=== PATIENT | female | born 1955 | race Caucasian/White ===

== ENCOUNTER 2019-12-14 11:02 | Outpatient (CLI) | payer OTHER, SELFPAY ==
--- NOTE | ~2019-12-14 | CT_ITS ---
EXAMINATION: CT lung screening EXAM DATE: 12/14/2019 11:34 INDICATION: Personal history of nicotine dependence. TECHNIQUE: Spiral low dose CT of the chest without contrast. Axial, coronal and sagittal images were reviewed. The dose-length product (DLP) for this examination was 105.68 mGy-cm. The exposure was t ailored according to patient size (auto mA exposure control), and iterative reconstruction (ASIR) was used as additional dose reduction technique. There is no prior study for comparison. FINDINGS: There is 4 mm nodule left perihilar region image 43. Mild emphysema. Tracheobronchial tree is patent. There is no mediastinal, hilar or axillary lymphadenopathy. There are no pleural or p ericardial effusions. There is no pneumothorax. Heart normal in size. There are sternotomy wire s, and cardiac/coronary surgical changes. Correlate with prior history. Upper abdomen is unremarkable . There is mild thoracic spondylosis without osteoblastic or osteolytic lesions identified. IMPRESSION: Lung-RADS category 2, benign appearance or behavior (<1% chance of malignancy); recommend continued LDCT screening in 1 year. Reviewed, dictated and finalized at location B. 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
== END 2019-12-14 11:03 | disposition home or self-care (01) ==
DX: Z12.2 Encounter for screening for malignant neoplasm of respiratory organs (principal); F17.211 Nicotine dependence, cigarettes, in remission
CPT/HCPCS: G0297

== ENCOUNTER 2020-03-14 09:29 | Outpatient (CLI) | payer OTHER, SELFPAY ==
--- NOTE | 2020-03-18 13:29 | WPDPFTINT ---
PFT Interpretation PFT Interpretation: DOS: 03/14/2020 REQUESTING: Dr Jorge Fischer REASON FOR TESTING: Severe persistent asthma with exacerbation PULMONARY FUNCTION TESTS Results are reproducible and reliable. Spirometry: FEV1 99%, FVC 98%, FEV1% 73%, YBT73-68% is 69%. No change with bronchodilator. Lung volumes: TLC 115%. RV 133% consistent with mild air trapping. Airway resistance is 176% mildly increased. Diffusion: DLCO is 56%, moderately decreased. Flow volume loop: Flow limitation and flattening of both limbs, the inspiratory limb more than the expiratory limb. IMPRESSION: Normal spirometry without change after bronchodilator. Mild air trapping. Mild increase in airway resistance. Lack of response to bronchdilator should not preclude use if clinically indicated. These findings are consistent with asthma. Moderate decrease in diffusion which is not a feature of asthma, may be related to tobacco smoking. Flattening of the both inspiratory and expiratory flow volume loops suggests a fixed upper airway obstruction which may be intra- or extrathoracic. Consider neck CT or laryngoscopy. Erica Baron MD
== END 2020-03-14 09:30 | disposition home or self-care (01) ==
LOC: ANHPFT 09:32
DX: J45.51 Severe persistent asthma with (acute) exacerbation (principal)
CPT/HCPCS: 94060; 94726; 94729

== ENCOUNTER 2020-04-03 08:10 | Outpatient (CLI) | payer OTHER, SELFPAY ==
--- NOTE | ~2020-04-03 | US_ITS ---
US abdomen complete DATE: 04/03/2020 08:51 INDICATION: Abdominal pain TECHNIQUE: Real-time imaging and Doppler analysis of the abdomen COMPARISON: 06/25/2016 CT abdomen pelvis FINDINGS: No hepatic space-occupying mass lesion is evident. There is normal hepatic portal venous fl ow direction. No gallstones or gallbladder wall thickening or abnormal pericholecystic fluid collecti on. The spleen measures within upper limits of normal at 12 cm approximate length. No renal mass lesion or hydronephrosis is evident. The pancreas, abdominal aorta and inferior vena cava are not well demonstrated due to interference fr om overlying bowel gas. IMPRESSION: Limited examination due to interference from bowel gas Reviewed, dictated and finalized at Location A. Reviewed, dictated and finalized at location A.
== END 2020-04-03 08:11 | disposition home or self-care (01) ==
DX: R10.84 Generalized abdominal pain (principal)
CPT/HCPCS: 76700

== ENCOUNTER 2020-09-08 13:44 | Outpatient (CLI) | payer OTHER, SELFPAY ==
--- NOTE | ~2020-09-08 | MM_ITS ---
EXAMINATION: MM screening [facility] BI w dimas HISTORY: Screening mammogram TECHNIQUE: Craniocaudal and mediolateral oblique 3-D tomosynthesis images were obtained and synthetic 2-D images were generated. CAD analysis was submitted and interpreted. COMPARISON: 07/18/2018, 07/06/2017, 07/02/2016 BREAST PARENCHYMAL COMPOSITION: There are scattered areas of fibroglandular density. FINDINGS: Stable focal asymmetry is present in the middle third of the inner left breast. There is no evidence of suspicious mass, calcification, or architectural distortion to suggest malignancy in eit her breast. There has been no suspicious interval change. IMPRESSION: 1. No mammographic evidence of malignancy. 2. Recommend routine screening mammography in one year. BI-RADS Category 2: Benign finding(s). Reviewed, dictated and finalized at location A.
--- NOTE | ~2020-09-08 | DEXA_ITS ---
Bone Density Report Name: Wendy Chin Age: 65 Sex: Female Ethnicity: White Date of : 1955 Indication: postmenopausal; cancer; asthma or emphysema; hysterectomy; Referring Provider: ARNO NOEL Study: Bone densitometry was performed. Exam Date: September 08, 2020 Accession number: [id number] Bone Density: Region BMD T-score Z-score Classification AP Spine (L1-L4) 0.819 -2.1 -0.4 Osteopenia Femoral Neck (Left) 0.500 -3.1 -1.7 Osteoporosis Total Hip (Left) 0.647 -2.4 -1.2 Osteopenia Total Hip Bilateral Avg 0.644 -2.5 -1.3 Osteoporosis Femoral Neck (Right) 0.516 -3.0 -1.5 Osteoporosis Total Hip (Right) 0.639 -2.5 -1.3 Osteoporosis World Health Organization criteria for BMD impression classify patients as: Normal (T-score at or above -1.0), Osteopenia (T-score between -1.0 and -2.5), or Osteoporosis (T-score at or below -2.5). 10-year Fracture Risk: FRAX not reported because: Some T-score for Spine Total or Hip Total or Femoral Neck at or below -2.5 Clinical Information Provided by Patient: Has used the following medications: Vitamin D, Calcium Has the following medical conditions: Asthma or Emphysema, Cancer, Hysterectomy Patient maximum height was 63 Menopause Age: 46 No regular weight bearing exercise Onset of menses at age 17 Number of children 4 Impression: The patient has osteoporosis, based on the Left Femoral Neck T-score. Discussion: INCREASED RISK OF FRACTURE. BONE DENSITY IS UNDESIRABLY LOW AT ONE OR MORE SKELETAL SITES, CONSISTENT WITH POSTMENOPAUSAL OSTEOPOROSIS. This patient's lowest T-score meets the World Health Organization's (WHO) criteria for osteoporosis at one or more sites (T-score -2.5 or below). In untreated patients, the risk of osteoporotic fracture increases approximately two-fold for each 1.0 SD decrease in T-score. Low bone density is not the only risk factor for fracture; also consider factors such as patient's age, frailty or poor health, risk of falling, risk of injury, previous osteoporotic fracture, family history of osteoporosis, cigarette smoking, low body weight, etc. Not everyone with low bone mineral density has osteoporosis; osteomalacia and other metabolic bone disorders should also be considered. Patients who have osteoporosis should be evaluated for specific diseases and conditions (secondary causes) that may cause or contribute to bone loss. The [place] Association of Clinical Endocrinologists (AACE) and National Osteoporosis Foundation (NOF) recommend pharmacologic intervention for all postmenopausal women whose T-score is in this range. The patient should follow a healthful lifestyle (good nutrition with adequate calcium and vitamin D, and appropriate weight-bearing exercise). Follow-Up: Consider a repeat BMD and Vertebral Fracture Assessment (VFA) exam in 2 y
== END 2020-09-08 13:45 | disposition home or self-care (01) ==
PROVIDERS: Visit Provider Obstetrics & Gynecology
DX: Z12.31 Encounter for screening mammogram for malignant neoplasm of breast (principal); Z78.0 Asymptomatic menopausal state; M18.0 Bilateral primary osteoarthritis of first carpometacarpal joints; M85.89 Other specified disorders of bone density and structure, multiple sites
CPT/HCPCS: 77063; 77067; 77080

== ENCOUNTER 2020-09-17 16:05 | Outpatient (CLI) | payer OTHER, SELFPAY ==
[2020-09-17 16:58] LABS: Estimated Glomerular Filt Rate > 60
== END 2020-09-17 16:06 | disposition home or self-care (01) ==
LOC: ANHLAB 16:07
PROVIDERS: PCP Family Medicine; Visit Provider Internal Medicine Gastroenterology
DX: R10.32 Left lower quadrant pain (principal); T50.8X5A Adverse effect of diagnostic agents, initial encounter
CPT/HCPCS: 36415; 82565

== ENCOUNTER 2020-09-22 11:55 | Outpatient (CLI) | payer OTHER, SELFPAY ==
--- NOTE | 2020-09-22 | ECHO_ITS ---
Patient Info Name: Wendy Chin Age: 65 years : 1955 Gender: Female Ht: 62 in Wt: 180 lbs BSA: 1.92 m2 HR: 75 bpm BP: 140 / 81 mmHg Heart Rhythm: Sinus Rhythm Technical Quality: Good Exam Date: 09/22/2020 12:57 PM Exam Location: [facility] Patient Status: Outpatient Admit Date: 09/22/2020 Staff Ordering Physician: PHYSICIAN NOT ON STAFF, NONSTAFF Electric Utility Lineworker: Main Winn RDCS Attending Provider: PHYSICIAN NOT ON STAFF, NONSTAFF Exam Type: CA echo doppler color flow Study Info Indications R60.9 - Edema, unspecified Complete two-dimensional, color flow and Doppler transthoracic echocardiogram is performed. History/Risk Factors Edema, HTN. Summary 1. Complete two-dimensional, color flow and Doppler transthoracic echocardiogram is performed. 2. Left ventricular systolic function is normal, estimated at 60-65%. 3. There is mildly increased left ventricular wall thickness. 4. The left ventricular diastolic function is grade I diastolic dysfunction. 5. There is trace tricuspid valve regurgitation. 6. Unable to estimate PA systolic pressure due to poor spectral resolution of tricuspid regurgitant jet velocity. 7. There is very mild/borderline aortic valve stenosis. Left Ventricle Left ventricular chamber dimension is normal. Left ventricular systolic function is normal, estimated at 60-65%. There is mildly increased left ventricular wall thickness. The left ventricular diastolic function is grade I diastolic dysfunction. Right Ventricle Right ventricular chamber dimension is normal. Right ventricular systolic function is normal. Left Atria Left atrial chamber dimension is normal. Right Atria Right atrial chamber dimension is normal. Aortic Valve The aortic valve is trileaflet. There is mild aortic valve sclerosis. There is very mild/borderline aortic valve stenosis. There is trace aortic valve regurgitation. Pulmonic Valve The pulmonic valve is not well visualized. Mitral Valve The mitral valve has normal leaflets. There is trace mitral valve regurgitation. The mitral valve annulus is mildly calcified. Tricuspid Valve The tricuspid valve leaflets are normal. There is trace tricuspid valve regurgitation. Unable to estimate PA systolic pressure due to poor spectral resolution of tricuspid regurgitant jet velocity. Pericardium/Pleural The pericardium appears normal. There is no pericardial effusion. Inferior Vena Cava Normal inferior vena cava with >50% collapse upon inspiration consistent with normal right atrial pressure, 5 mmHg. Aorta The aortic root size at the sinus of Valsalva is normal. There is mild aortic atherosclerosis. Left Ventricular Outflow Tract Name Value Normal LVOT 2D LVOT Diameter 2.0 cm LVOT Doppler LVOT Peak Gradient 4 mmHg LVOT Mean Gradient 2 mmHg LVOT VTI 20 cm LVOT VTI/AV VTI Ratio 0.7 LVOT Stroke Volume 63 ml LVOT CO 4.3 l/min
== END 2020-09-22 11:56 | disposition home or self-care (01) ==
PROVIDERS: PCP Family Medicine
DX: R60.9 Edema, unspecified (principal)
CPT/HCPCS: 93306

== ENCOUNTER 2020-10-06 09:42 | Outpatient (CLI) | payer OTHER, SELFPAY ==
--- NOTE | ~2020-10-06 | XR_ITS ---
XR abdomen/kub 1V 10/06/2020 10:35 Indication: Left lower quadrant pain Procedure: KUB Comparison: No prior studies for comparison. Findings: Bowel gas pattern is nonobstructive. There right renal stones. No acute osseous abnormality . Mild lumbar spondylosis. Impression: 1: Right nephrolithiasis. Reviewed, dictated and finalized at location A. CAL DRIVER Impression: 1: Right nephrolithiasis.
== END 2020-10-06 09:43 | disposition home or self-care (01) ==
LOC: ANHIMG 09:48
PROVIDERS: PCP Family Medicine; Visit Provider Internal Medicine Gastroenterology
DX: R10.32 Left lower quadrant pain (principal); N20.0 Calculus of kidney
CPT/HCPCS: 74018

== ENCOUNTER 2020-11-17 10:59 | Outpatient (CLI) | payer OTHER, SELFPAY ==
--- NOTE | ~2020-11-17 | CT_ITS ---
EXAMINATION: CT lung screening EXAM DATE: 11/17/2020 11:43 INDICATION: Personal history of nicotine dependence. Ovarian cancer in 1973. COPD. TECHNIQUE: Spiral low dose CT of the chest without contrast. Axial, coronal and sagittal images were reviewed. The dose-length product (DLP) for this examination was 119.62 mGy-cm. The exposure was t ailored according to patient size (auto mA exposure control), and iterative reconstruction (ASIR) was used as additional dose reduction technique. Comparison is made to prior examination from 12/14/2019. FINDINGS: Mild right basilar predominant interlobular septal thickening, probably mild chronic inter stitial lung disease unchanged. There is mild emphysema. Previously described left perihilar nodular has essentially resolved, post infectious. No new or suspicious opacities. Tracheobronchial tree is patent. There is no mediastinal, hilar or axillary lymphadenopathy. There are no pleural or peric ardial effusions. There is no pneumothorax. Heart normal in size. There are sternotomy wires, a nd cardiac/coronary surgical changes. Correlate with prior history. Upper abdomen is unremarkable. There is thoracic spondylosis without osteoblastic or osteolytic lesions identified. IMPRESSION: Lung-RADS category 1, negative (<1%chance of malignancy); recommend continued LDCT screen ing in 1 year. > Reviewed, dictated and finalized at location A. 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 >
== END 2020-11-17 11:00 | disposition home or self-care (01) ==
PROVIDERS: PCP Internal Medicine; Referring Provider Hospitalist; Visit Provider Student in an Organized Health Care Education/Training Program
DX: Z12.2 Encounter for screening for malignant neoplasm of respiratory organs (principal); F17.211 Nicotine dependence, cigarettes, in remission
CPT/HCPCS: 71271

== ENCOUNTER 2020-11-24 14:27 | Emergency (ER) | payer OTHER, SELFPAY ==
--- NOTE | ~2020-11-24 | XR_ITS ---
EXAMINATION: XR chest 1V DATE: 11/24/2020 16:31 INDICATION: Shortness of breath, cough, fever, and chills. TECHNIQUE: A single frontal view of the chest was obtained. COMPARISON: Chest 2 views 09/01/2019, chest CT 11/17/2020 FINDINGS: There is mild atelectasis at the lung bases. No pleural effusion or pneumothorax. The heart size is normal. Median sternotomy wires and mediastinal surgical clips are seen, likely from prior c oronary artery bypass grafting. IMPRESSION: 1. Mild atelectasis at the lung bases. Reviewed, dictated and finalized at location A. 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
--- NOTE | 2020-11-24 15:25 | ECG_ITS ---
Measurements Intervals [place] Rate: 82 P: -1 MS: 133 QRS: -7 QRSD: 83 T: 21 QT: 360 QTc: 423 Interpretive Statements SINUS RHYTHM BORDERLINE ST ABNORMALITY- ANT/INF LEADS BASELINE ARTIFACT- I, II, III, AVR, V3 BORDERLINE ECG Electronically Signed On 11-24-2020 16:14:28 JOURNEYMAN MOLDER by Thong Salazar D.O.
[2020-11-24 15:27] VITALS: BP 131/64; PULSE 78; RESP 20; TEMP 37.3; O2SAT 99
[2020-11-24 15:43] LABS: Basophils Percent Auto 0.3 % (0.2-1.2); Eosinophils Percent Auto 0.3 % (0-4.4); Hematocrit 38.1 % (37.0-47.0); Immature Granulocyte Absolute 0.03 K/mm3 (0.00-0.031); Immature Granulocyte Percent A 0.8 % (0-0.5); Lymphocytes Absolute Auto 0.82 K/mm3 (0.9-3.2); Lymphocytes Percent Auto 21.8 % (18.3-44.2); Mean Corpuscular HGB Conc 34.1 g/dl (32-36); Mean Corpuscular Hemoglobin 29.8 pg (26-34); Mean Corpuscular Volume 87.4 fl (80-100); Mean Platelet Volume 9.3 fl (7.4-10.4); Monocytes Absolute Auto 0.4 K/mm3 (0.1-0.6); Monocytes Percent Auto 9.5 % (2.6-8.5); Neutrophils Absolute Auto 2.5 K/mm3 (1.3-6.7); Neutrophils Percent Auto 67.3 % (45.5-73.1); Platelet Count Result 140 k/mm3 (150-375); Red Blood Count 4.36 M/mm3 (4.2-5.4); Red Cell Distribution Width 11.9 % (11.5-14.5); White Blood Count 3.8 K/mm3 (4.5-10.0)
[2020-11-24 15:58] LABS: Anion Gap 8 mmol/L (8-16); Blood Urea Nitrogen 14 mg/dL (7-17); Calcium 8.3 mg/dL (8.4-10.2); Carbon Dioxide 26 mmol/L (22-30); Chloride 101 mmol/L (98-107); Estimated CRCL calculation 69 ml/min; Estimated Glomerular Filt Rate > 60; Glucose 97 mg/dL (65-105); Potassium 3.6 mmol/L (3.4-5.0); Sodium 135 mmol/L (137-145)
[2020-11-24 16:50] VITALS: BP 110/72; PULSE 76; RESP 20; O2SAT 97
--- NOTE | 2020-11-24 16:51 | ED.SOB ---
HPI - SOB/Dyspnea General Chief Complaint: Shortness of Breath/Dyspnea Stated Complaint: no sense of smell/fever/chills Time Seen by Provider: 11/24/20 16:42 Source: patient Mode of arrival: ambulatory Limitations: no limitations History of Present Illness HPI Narrative: A 65-year-old female presents to the emergency department with complaints of shortness of breath, abdominal pain, nausea vomiting and dehydration. Patient states that because of her nausea she has not been able to urinate and down and feels like she is very dehydrated. Patient also endorses loss of smell and taste. She states that the symptoms have been going on for the past 4 to 5 days. She denies any fevers or chills at this time. Related Data Allergies Allergy/AdvReac Type Severity Reaction Status Date / Time No Known Allergies Allergy Unknown Verified 09/01/19 12:30 Review of Systems Review of Systems: Narrative: CONSTITUTIONAL: Denies fever, chills, or sweats. Endorses loss of smell and taste. EYES: Denies visual changes, redness, or discharge. ENT: Denies rhinorrhea, congestion, sore throat, or otalgia. CARDIOVASCULAR: Denies chest pain, palpitations, or edema. RESPIRATORY: Denies cough or dyspnea. GASTROINTESTINAL: Endorses pain, nausea and vomiting. GENITOURINARY: Denies dysuria or hematuria. SKIN: Denies rash or itching. MUSCULOSKELETAL: Denies back pain, joint pain, or myalgia. NEUROLOGIC: Denies headache, numbness, dizziness, or weakness. PSYCHIATRIC: Denies anxiety or depression. [facility] Family History Family History Father Family history of malignant neoplasm Mother Family history of emphysema Exam Narrative: Exam Narrative: GENERAL: Well-appearing, well-nourished, and in no acute distress. HEAD: Normocephalic, atraumatic. EYES: PERRLA and EOMI. ENT: Nares clear, no rhinorrhea or epistaxis. Mucous membranes moist. Oropharynx without tonsillar hypertrophy exudate or other lesions. Bilateral TMs pearly jung nonbulging NECK: Supple. No adenopathy or masses. No carotid bruits or JVD CHEST: Clear to auscultation. No respiratory distress. No wheezes rales or rhonchi HEART: Regular rate and rhythm. No murmur heard. Normal peripheral pulses. ABDOMEN: Soft, nondistended, normal active bowel sounds. Generalized tenderness to palpation. EXTREMITIES: Normal range of motion. No edema. SKIN: Warm, dry, no rash. NEURO: No focal deficits. Alert and oriented x3. PSYCH: Normal mood and affect. Course Reevaluation(s) Reevaluation #1: Reevaluated and provided care update discussed the work-up thus far with the patient. She states that she is feeling better now but states that she feels like she is getting very warm. Temperature rechecked on the patient, was found to be 98 1. She states that she is okay with that, is feeling better and is ready to go home. Time: 19:11 Vital Signs Vital signs: Vital Signs Temperature 37.3 C 11/24/20 15:27 Pulse Rate 78 11/24/20 15:27 Respiratory Rate 20 11/24/20 15:27 Blood Pressure 131/64 11/24/20 15:27 Pulse Oximetry 99 11/24/20 15:27 Temperature 37.3 C 11/24/20 15:27 Pulse Rate 76 11/24/20 16:50 Respiratory Rate 20 11/24/20 16:50 Blood Pressure 110/72 11/24/20 16:50 Pulse Oximetry 97 11/24/20 16:50 MDM - SOB/Dyspnea MDM Narrative Medical decision making narrative: In brief this is a 65-year-old female who came into the emergency department with a constellation of symptoms that is likely COVID-19. Patient treated symptomatically. Work-up and labs reassuring. Will discharge patient home for further management by her primary care physician. Medical Records Attestation: I reviewed the patient's medical records. Lab Data Attestation: I reviewed the patient's lab results. Result diagrams: 11/24/20 15:31 11/24/20 15:31 Labs: Lab Results 11/24/20 11/24/20 11/24/20 Range/Units 15:31 15:31 1
[2020-11-24] MEDS: LACTATED RINGERS 1,000 ML 999 ML IV CONT (17:25)
[2020-11-24] MEDS: KETOROLAC 15 MG/ML VIAL (*BKC) IV PUSH (17:25)
[2020-11-24] MEDS: ONDANSETRON INJ 4 MG/2 ML VIAL IV PUSH (17:26)
[2020-11-24 17:47] LABS: Lipase 72 U/L (23-300)
[2020-11-24 19:10] VITALS: BP 123/64; PULSE 78; O2SAT 96
[2020-11-24 19:24] VITALS: BP 147/72; PULSE 78; RESP 18; O2SAT 97
[2020-11-25 19:22] LABS: SARS-CoV-2 RNA PCR Positive
== END 2020-11-24 19:27 | disposition home or self-care (01) ==
PROVIDERS: Emergency Medicine; Emergency Provider Emergency Medicine; PCP Internal Medicine
DX: U07.1 COVID-19 (principal); R11.2 Nausea with vomiting, unspecified; R91.8 Other nonspecific abnormal finding of lung field
CPT/HCPCS: 36415; 71045; 80048; 83690; 85025; 93005; 96361; 96374; 96375; 99284; C9803; J1885; J2405; J7120; U0003

== ENCOUNTER 2023-01-07 08:50 | Outpatient (CLI) | payer OTHER, SELFPAY ==
--- NOTE | ~2023-01-07 | MM_ITS ---
EXAMINATION: MM screening [facility] BI w dimas HISTORY: Screening mammogram TECHNIQUE: Craniocaudal and mediolateral oblique 3-D tomosynthesis images were obtained and synthetic 2-D images were generated. CAD analysis was submitted and interpreted. COMPARISON: 09/08/2020, 07/2018, 07/06/2017 bilateral screening mammogram examinations BREAST PARENCHYMAL COMPOSITION: There are scattered areas of fibroglandular density. FINDINGS: There is a moderate to device within the left breast. There is no evidence of suspicious ma ss, calcification, or architectural distortion to suggest malignancy in either breast. There has been no suspicious interval change. IMPRESSION: 1. No mammographic evidence of malignancy. 2. Recommend routine screening mammography in one year. BI-RADS Category 1: Negative Reviewed, dictated and finalized at location A. UCTION SPECIALIST
== END 2023-01-07 08:51 | disposition home or self-care (01) ==
LOC: ANHIMG 08:54
PROVIDERS: PCP Family Medicine; Visit Provider Family Medicine
DX: Z12.31 Encounter for screening mammogram for malignant neoplasm of breast (principal)
CPT/HCPCS: 77063; 77067

== ENCOUNTER 2025-03-12 13:23 | Outpatient (CLI) | payer OTHER, SELFPAY ==
--- NOTE | ~2025-03-12 | MM_ITS ---
EXAMINATION: MM screening ronny BI w dimas HISTORY: Screening mammogram TECHNIQUE: Craniocaudal and mediolateral oblique 3-D tomosynthesis images were obtained and synthetic 2-D images were generated. CAD analysis was submitted and interpreted. COMPARISON: 01/07/2023, 09/08/2020 BREAST PARENCHYMAL COMPOSITION:Not Dense. There are scattered areas of fibroglandular density. FINDINGS: No suspicious mass, calcification, or architectural distortion are identified in either dave ast to suggest malignancy. There has been no suspicious interval change. IMPRESSION: No mammographic evidence of malignancy. Recommend routine screening mammography in one year. BI-RADS Category 1: Negative Reviewed, dictated and finalized at location .
--- OUTSIDE RECORDS SUMMARY | 2025-03-12 14:38 | XMS_ITS | Encounter Summary ---
Author Organization [facility] Address [address] [place] [address] Care Team Providers Care Hired Help Name Role Phone Garrison Fowler MD Unavailable [phone] Curry Laguerre MD Primary Care Provider [phone] Encounter Details Date Type Department Care Team (Late st Contact Info) Description 05/11/2023 Plexxihart Message Enc [facility] [address] [place] [address] [employer], [facility] Provider Air Quality Message Social History Tobacco Use Types Packs/Day Years Used Date Smoking Tobacco: Some Days Cigarettes Last attempted to quit: 08/2018 Smokeless Tobacco: Never Comments: 1-2 cigarettes roxana ry couple of days Alcohol Use Standard Drinks/Week Comments Yes 0 (1 standard drink = 0.6 oz pur e alcohol) SOCIALLY AUDIT-C Answer Date Recorded Frequency of Alcohol Consumption Never 01/25/2019 Average Number of Drinks Not on file 019 Frequency of Binge Drinking Not on file 01/12 Comments No Sex and Gender Information Value Date Recorded Sex Assigned at Female 12/05/2024 10:58 AM DENTAL INSTRUCTOR Legal Sex Female 2:19 PM CDT Gender Identity Female 01/04/2022 9:30 AM DENTAL INSTRUCTOR Sexual Orientation Straight 01/04/2022 9: 30 AM DENTAL INSTRUCTOR Occupation Industry Job Start Date Job End Date Not on file Not on file Not on file Not on file COVID-19 Exposure Response Date Recorded In the last 10 days, have yo u been in contact with someone who was confirmed or suspected to have Coronavirus/COVID-19? No / Unsure 04/27/2023 9:43 AM CDT documented as of this encounter Plan of Treatment Upcoming Encounters Date Type Department Care Team (Late st Contact Info) Description 06/05/2025 11:45 AM CDT Office Visit [facility], [facility] [address] [place] [address] Garrison Fowler MD Three [facility]. [address] [id number] documented as of this encounter Visit Diagnoses Not on filedocumented in this encounter Care Teams Hired Help Relationship Specialty Start Date End Date Curry Laguerre MD [address] [address] PCP - General FAMILY PRACTICE 04/15/21 Garrison Fowler MD Three [facility]. [address] [id number] [place] [employer] Trimmer CARDIOVASCULAR DISEASE 05/14/17 documented as of this encounter
--- OUTSIDE RECORDS SUMMARY | 2025-03-12 14:39 | XMS_ITS | Encounter Summary ---
Author Organization [facility] Address [address] [place] [address] Care Team Providers Care Code And Test Clerk Name Role Phone Curry Laguerre MD Primary Care Provider [phone] Encounter Details Date Type Department Care Team (Late st Contact Info) Description 12/08/2022 Telephone [facility] [address] [facility] [address] [place] [address] Manoj Carmen MD [address] [place], [place] [id number] Social History Tobacco Use Types Packs/Day Years Used Date Smoking Tobacco: Some Days Cigarettes Last attempted to quit: 04/15/2018 Smokeless Tobacco: Never AUDIT-C Answer Date Recorded Q1: How often do you have a drink containing alc ohol? Monthly or less 11/09/2022 Average Number of Drinks Not on file 022 Frequency of Binge Drinking Not on file 10/15 Comments No Sex and Gender Information Value Date Recorded Sex Assigned at Not on file Legal Sex Female 8:18 PM CO PILOT Gender Identity Female 10/18/2021 9:56 AM CO PILOT Sexual Orientation Straight 10/18/2021 9: 54 AM CO PILOT documented as of this encounter Plan of Treatment Not on file documented as of this encounter Goals Goal Patient Goal Type Associated Problems Recent Progress Patient-Stated? Author CCM Chronic Pain Care Plan Chronic Care Management Worsening( 1:24 PM CDT) No Amberly Clayton, RN Note: Problem: Chronic Pain Goals: 1. Minimize further functional decline 2. Maximize quality of life 3. Control pain Strategies: - Activity/exercise program recommendation - Conservative stepwise pain medicine strategy with multi-disciplinary approach - Recommend healthy lifestyle strategies and compensatory methods as needed documented as of this encounter Visit Diagnoses Not on filedocumented in this encounter Care Teams Code And Test Clerk Relationship Specialty Start Date End Date Curry Laguerre MD [address] [address] PCP - General 02/19/21 documented as of this encounter
--- OUTSIDE RECORDS SUMMARY | 2025-03-12 14:39 | XMS_ITS | Clinical Summary ---
Author Organization [facility] Address [address] [place] [address] Care Team Providers Care Precast Concrete Ironworker Name Role Phone Jean Pickett MD Primary Care Provider Source Comments [facility],non-owned Affiliates and Associated Physician Practices is amultiple site organization consisting of ambulatory clinics and hospital sitesin [place], [place] and [place]. This disclosure is being madepursuant to the Care Everywhere program and may not contain all information available regarding this patient. Last updated 18.[facility] Allergies No known active allergies Medications * Be aware that medications may not be up to date on this document. Alwaysverify current medications with the patient. amLODIPine (NORVASC) 10 MG tablet Take 1 tablet by mouth once daily 12 02/18/2018 Active SYMBICORT 160-4.5 MCG/ACT inhaler Take 2 puffs by mouth 2 times daily 3 02/18/2018 Active DULoxetine (CYMBALTA) 30 MG capsule Take 1 capsule by mouth once daily 0 03/06/2018 Active hydrOXYzine hcl (ATARAX) 25 MG tablet Take 1 tablet by mouth at bedtime 0 01/05/2018 Active losartan-hydroC HLOROthiazide (HYZAAR) 100-25 MG tablet Take 1 tablet by mouth once daily 6 12/13/2017 Active meloxicam (MOBIC) 7.5 MG tablet Take 1 tablet by mouth once daily 2 12/13/2017 Active methocarbamol (ROBAXIN) 500 MG tablet Take 1 tablet by mouth 3 times daily as needed for Pain 0 02/28/2018 Active raNITIdine (ZANTAC) 300 MG tablet Take 1 tablet by mouth once daily 11 02/18/2018 Active sertraline (ZOLOFT) 100 MG tablet Take 2 tablets by mouth once daily 3 12/13/2017 Active spironolactone (ALDACTONE) 50 MG tablet Take 1 tablet by mouth once daily 3 03/06/2018 Active Social History Tobacco Use Types Packs/Day Years Used Date Smoking Tobacco: Every Day Cigarettes Smokeless Tobacco: Never Tobacco Cessation:Ready to Q uit: No; Counseling Given: Yes Alcohol Use Standard Drinks/Week Comments Yes 0 (1 standard drink = 0.6 oz pur e alcohol) occasionally Comments No Sex and Gender Information Value Date Recorded Sex Assigned at Not on file Legal Sex Female 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 WORKER Gender Identity Not on file Sexual Orientation Not on file Last Filed Vital Signs Vital Sign Reading Time Taken Comments Blood Pressure 147/81 03/27/2018 11:16 AM CDT Pulse 74 03/27/2018 11:16 AM CDT Temperature - - Respiratory Rate - - Oxygen Saturation - - Inhaled Oxygen Concentration - - Weight 77.1 kg (170 lb) 03/27/2018 11:16 AM CDT Height 160 cm (5' 3 ) 03/27/2018 11:16 AM CDT Body Mass Index 30.11 03/27/2018 11:16 AM CDT Plan of Treatment Health Maintenance Due Date Last Done Comments BONE DENSITY TESTING 1955 COLOGUARD (AGES 45-75) - COL ON CA SCREENING 1956 COLON MONITORING 1956 COLONOSCOPY - COLON CA SCREENING 1956 CT COLONOGRAPHY - COLON CA SCREENING 1955 Colorectal Cancer Screening 1956 FIT - COLON CA SCREENING 1956 FLEX SIG - COLON CA SCREENING 1956 LIPID TESTING 1956 MAMMOGRAM 1956 HEPATITIS C SCREENING 04/19/1974 DTAP/TDAP/TD VACCINES (1 - Tdap) 1975 PNEUMOCOCCAL VACCINE 50+ (1 of 2 - PCV) 1975 ZOSTER VACCINE (1 of 2) 2006 SCREENING FOR DIABETES 03/27/2018 COVID-19 VACCINE ( - 2023-2 5 season) 2024 DEPRESSION SCREENING 11/14/2024 INFLUENZA VACCINE (Season Ended) 2025 Respiratory Syncytial Virus (RSV) Vaccine Pt: or over 60 yrs (1 - 1-dose 75+ series) 2031 HEPATITIS B VACCINE Aged Out No longe r eligible based on patient's age to complete this topic HIB VACCINE Aged Out No longer eligi ble based on patient's age to complete this topic HPV VACCINE Aged Out No longer eligi ble based on patient's age to complete this topic MENINGOCOCCAL (Group B) VACC INE SHARED DECISION-MAKING Aged Out No longer eligibl e based on patient's age to complete this topic MENINGOCOCCAL GROUPS A/C/Y/W VACCINE Aged Out No longer eligible b ased on patient's age to complete this topic Insurance Care Teams Precast Concrete Ironworker Relationship Specialty Start Date End Date Jean Pickett MD PCP - General 12/16/17
--- OUTSIDE RECORDS SUMMARY | 2025-03-12 14:39 | XMS_ITS | Encounter Summary ---
Author Organization [facility] Address [facility] [place] [address] Care Team Providers Care Internal Review And Audit Compliance Name Role Phone Garrison Fowler MD Unavailable [phone] Curry Laguerre MD Primary Care Provider [phone] Encounter Details Date Type Department Care Team ([facility] st Contact Info) Description 01/12/2022 NXTM Message Enc [facility], [address] [address] [place], [facility] Provider carotid ultrasound results Social History Tobacco Use Types Packs/Day Years Used Date Smoking Tobacco: Former Cigarettes 3 40 1 - 08/2018 Smokeless Tobacco: Never Comments:states 1.5-2 packs a day Alcohol Use Standard Drinks/Week Comments No 0 (1 standard drink = 0.6 oz pur e alcohol) SOCIALLY AUDIT-C Answer Date Recorded Frequency of Alcohol Consumption Never 01/25/2019 Average Number of Drinks Not on file 019 Frequency of Binge Drinking Not on file 01/12 Comments No Sex and Gender Information Value Date Recorded Sex Assigned at Female 12/05/2024 10:58 AM CLINICAL ADMINISTRATOR Legal Sex Female 2:19 PM CDT Gender Identity Female 01/04/2022 9:30 AM CLINICAL ADMINISTRATOR Sexual Orientation Straight 01/04/2022 9: 30 AM CLINICAL ADMINISTRATOR Occupation Industry Job Start Date Job End Date Not on file Not on file Not on file Not on file COVID-19 Exposure Response Date Recorded In the last 10 days, have yo u been in contact with someone who was confirmed or suspected to have Coronavirus/COVID-19? No / Unsure 01/11/2022 1:52 PM CLINICAL ADMINISTRATOR documented as of this encounter Plan of Treatment Upcoming Encounters Date Type Department Care Team (Late st Contact Info) Description 06/05/2025 11:45 AM CDT Office Visit [facility], [facility] [address] [place] [address] Garrison Fowler MD [facility]. [facility] [address] [place] [address] documented as of this encounter Visit Diagnoses Not on filedocumented in this encounter Care Teams Internal Review And Audit Compliance Relationship Specialty Start Date End Date Curry Laguerre MD [address] [address] PCP - General FAMILY PRACTICE 04/15/21 Garrison Fowler MD [facility]. [facility] [address] [place] [address] [employer] Collector CARDIOVASCULAR DISEASE 05/14/17 documented as of this encounter
--- OUTSIDE RECORDS SUMMARY | 2025-03-12 14:39 | XMS_ITS | Encounter Summary ---
Author Organization [facility] Address [address] [place] [address] Care Team Providers Care Balance Wheel Screw Hole Driller Name Role Phone Janet Little MD Primary Care Provider [phone] Garrison Fowler MD Unavailable [phone] Bela Voss MD Primary Care Provider [phone] Curry Laguerre MD Primary Care Provider Encounter Details Date Type Department Care Team (Late st Contact Info) Description 06/06/2018 Hospital Follow-up Call [facility] [place], [place] [address] Laina Dela Cruz, RN Social History Tobacco Use Types Packs/Day Years Used Date Smoking Tobacco: Every Day Cigarettes Smokeless Tobacco: Never Comments:states 1.5-2 packs a day Alcohol Use Standard Drinks/Week Comments Yes 0 (1 standard drink = 0.6 oz pur e alcohol) SOCIALLY Comments No Sex and Gender Information Value Date Recorded Sex Assigned at Female 12/05/2024 10:58 AM TRAIN RESERVATION CLERK Legal Sex Female 2:19 PM CDT Gender Identity Female 01/04/2022 9:30 AM TRAIN RESERVATION CLERK Sexual Orientation Straight 01/04/2022 9: 30 AM TRAIN RESERVATION CLERK Occupation Industry Job Start Date Job End Date Not on file Not on file Not on file Not on file documented as of this encounter Plan of Treatment Upcoming Encounters Date Type Department Care Team (Late st Contact Info) Description 06/05/2025 11:45 AM CDT Office Visit [facility] THREE [facility], [place] [address] [place] [address] Garrison Fowler MD Three [facility]. [place] [address] [place] [address] documented as of this encounter Visit Diagnoses Not on filedocumented in this encounter Care Teams Balance Wheel Screw Hole Driller Relationship Specialty Start Date End Date Janet Little MD [address] [facility] [address] [place] [address] PCP - General FAMILY PRACTICE 06/07/17 11/20/18 Bela Voss MD [address] [facility] [address] [place] [address] PCP - General FAMILY PRACTICE 11/21/18 04/14/21 Curry Laguerre MD [address] [address] PCP - General FAMILY PRACTICE 04/15/21 Garrison Fowler MD Three [facility]. [place] [address] [place] [address] Joelle Hot Bread Baker CARDIOVASCULAR DISEASE 05/14/17 documented as of this encounter
--- OUTSIDE RECORDS SUMMARY | 2025-03-12 14:39 | XMS_ITS | Clinical Summary ---
Author Organization [facility] Address [address] [place] [address] Care Team Providers Care Aircraft Avionics Technician Name Role Phone Garrison Fowler MD Unavailable Curry Laguerre MD Primary Care Provider [phone] Allergies No known active allergies Medications aspirin 81 MG tablet Take 1 tablet (81 mg total) by mouth daily. 9 Active albuterol sulfate HFA 108 (90 Base) MCG/ACT inhaler INL 1 TO 2 PFS PO Q 4 H PRF SOB 0 9 Active lisinopril 10 MG tablet Take 1 tablet (10 mg total) by mouth daily. 90 tablet 1 0 Active METOPROLOL TARTRATE 25 MG tablet TAKE ONE (1) TABLET BY MOUTH TWICE DAILY 180 tablet 1 Active atorvastatin 80 MG tablet Take 1 tablet (80 mg total) by mouth nightly at bedtime. 90 tablet 1 Active famotidine 40 MG tablet Take 1 tablet (40 mg total) by mouth nightly as needed. 1 Active traZODone 100 MG tablet Take 1 tablet (100 mg total) by mouth nightly as needed. 2 Active sertraline (ZOLOFT) 100 MG tablet Take 2 tablets (200 mg total) by mouth daily. 2 Active Calcium Carbonate-Vit D-Min (CALCIUM 1200 OR) Take by mouth daily. Active gabapentin (NEURONTIN) 300 MG capsule Take 1 capsule (300 mg total) by mouth 3 (three) times daily. Active montelukast (SINGULAIR) 10 MG tablet TAKE 1 TABLET BY MOUTH ONCE DAILY FOR COUGH 4 Active nicotine (NICODERM CQ) 14 MG/24HR APPLY 1 PATCH TOPICALLY ONCE DAILY 4 Active omeprazole (PRILOSEC) 20 MG capsule Take 1 capsule (20 mg total) by mouth daily. Active predniSONE (DELTASONE) 20 MG tablet Take 1 tablet (20 mg total) by mouth daily. 4 Active IBSRELA 50 MG Tab Take 50 mg by mouth. 4 Active ezetimibe (ZETIA) 10 MG tablet Take 1 tablet (10 mg total) by mouth daily. 90 tablet 2 4 Active nitroglycerin (NITROSTAT) 0.[address] 1 tablet (0.4 mg total) under the tongue every 5 (five) minutes as needed for Chest Pain. Maximum of three doses, if a third dose is needed call 911. 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 ([facility]) 01/26/2022 Overview (01/26/2022): OSCAR DONG IMPLANTED 01/25/22 FOR CRYPTOGENIC STROKE Status post placement of implantable loop record er 01/25/2022 Overview (01/26/2022): OSCAR DONG IMPLANTED 01/25/22 FOR CRYPTOGENIC STROKE Environmental and seasonal allergies 10/15/2019 Severe persistent asthma wit h exacerbation ([facility]) 01/25/2019 Reactive airway disease with out complication, unspecified asthma severity, unspecified whether persistent ([facility]) 10/27/2018 Cigarette nicotine dependence in remission 10/27 Asbestos exposure 10/27/2018 Pulmonary air trapping 10/27/2018 Coronary artery disease invo lving resighini heart without angina pectoris 06/20/2018 Assessment & Plan (10/27/2022 3:14 PM BOAT ASSEMBLER): no chest pain/pressure. Tolerating statin,zetia, asa and plavix, and metoprolol. No changes needed. Dyslipidemia 06/20/2018 Assessment & Plan (10/27/2022 3:13 PM BOAT ASSEMBLER): On atorva 80 and zetia 10 Repeat lipid panel now Discussed possible addition of a PCSK9 inhibitor if not at goal Paroxysmal atrial fibrillation ([facility]) 06/20/2018 Assessment & Plan (10/27/2022 9:18 AM BOAT ASSEMBLER): AFib - paroxysmal, after bypass. Had possible TIA. LINQ without clear Afib. S/P CABG (coronary artery bypass graft) 05/10/20 Lumbar facet arthropathy 10/03/2017 Gastroesophageal reflux disease 10/23/2013 Chronic obstructive lung disease ([facility]) 11/06/2012 Hyperlipidemia 10/09/2012 Essential hypertension Assessment & Plan (10/27/2022 3:14 PM BOAT ASSEMBLER): Blood pressure stable on current regimen Continued on lisinopril, aldactone, and metoprolol Palpitations Resolved Problems Problem Noted Date Diagnosed Date Resolved Date Unstable angina ([facility]) 05/05/2018 06/20/2018 Tobacco abuse 05/05/2018 06/20/2018 ACS (acute coronary syndrome ) ([facility]) 05/03/2018 06/20/2018 Chest pain 05/02/2018 06/20/2018 Assessment & Plan (05/05/2018 8:31 AM CDT): Despite report of some typical CP sx, picture is clouded by many other complaints. Pt seems to be chiefly concerned about low back pain, which is chronic and has been thoroughly worked up. Nonetheless, she has risk factors and her history is troubling, so a rule out for ACS is warranted. EKG and CXR negative for acute pathology, trops x3 negative. AFVSS. Stress testing positive for ischemia. ASCVD risk appropriate for high-intensity statin. - C remarkable for multivessel disease --> 80% stenosis in left anterior descending artery and multiple long 90% stenosis in the right coronary artery. Diagonal Artery: 90% - Pt to have CABG this AM - Sstarted on atorvastatin 40/d, continue ASA 81 - Start Beta mario at dc Immunizations Immunization Administration Dates Next Due Afluria 36 MONTHS+ (Prefille d Syringe IIV4) 08/13/2019 Fluzone 6 Months+ Quad (0.5 mL Prefilled Syringe) 07/17/2020 Influenza Adult (Generic) 08/13/2019,02/2018,07/14/2017,2015,11/17/2015,08/09/2013 Pneumococcal (Pneumovax 23) 11/17/2015 Pneumococcal (Prevnar 13) 09/15/2018 Tdap (Boostrix) 07/14/2017 Family History Medical History Relation Comments Cancer Father Liver Disease Sister Relation Status Comments Father (Age 49) BRAIN TUMOR Mother (Age 59) Sister (Age 54) Social History Tobacco Use Types Packs/Day Years [...] Sex Assigned at Female 12/05/2024 10:58 AM BOAT ASSEMBLER Legal Sex Female 2:19 PM CDT Gender Identity Female 01/04/2022 9:30 AM BOAT ASSEMBLER Sexual Orientation Straight 01/04/2022 9: 30 AM BOAT ASSEMBLER Occupation Industry Job Start Date Job End Date Not on file Not on file Not on file Not on file Last Filed Vital Signs Vital Sign Reading Time Taken Comments Blood Pressure 130/84 12/05/2024 10:59 AM BOAT ASSEMBLER Pulse 71 12/05/2024 10:59 AM BOAT ASSEMBLER Temperature 36.7 C (98.1 F) 02/06/2024 9:36 AM CDT Respiratory Rate 20 02/06/2024 9:36 AM CDT Oxygen Saturation 97% 05/30/2024 10:21 AM CDT Inhaled Oxygen Concentration - - Weight 69.9 kg (154 lb) 12/05/2024 10:59 AM BOAT ASSEMBLER Height 160 cm (5' 3 ) 12/05/2024 10:59 AM BOAT ASSEMBLER Body Mass Index 27.28 12/05/2024 10:59 AM BOAT ASSEMBLER Plan of Treatment Upcoming Encounters Date Type Department Care Team (Late st Contact Info) Description 06/05/2025 11:45 AM CDT Office Visit [facility], [address] [address] Garrison Fowler MD Three [facility]. [address] [id number] Health Maintenance Due Date Last Done Comments ASCVD Statin 1955 Colorectal Cancer Screening Colonoscopy (10 Years) 1956 Hepatitis C 1974 Mammogram Screening 1996 RSV Immunization or 60+ Years (1 - Risk 60-74 years 1-dose series) 2016 COVID-19 Vaccine ( - season) 2024 07/28/2022, 08/08/2021, 02/05/2021, Additional history exists PHQ-2 (Physician [place]) 11/14/2024 ASCVD LDL 02/05/2025 02/06/2024, 04/14, 10/27/2022, Additional history exists DTaP, Tdap and Td Vaccines (4 - Td or Tdap) 11/23/2032 11/23/2022, 07/17/2020, 07/14/2017 Pneumococcal Vaccine: 50+ Years Completed 08/08/2021, 09/15/2018, 11/17/2015 Zoster Vaccines Completed 01/14/2023, 11/08/2022 Dexa Scan (General) Completed 04/05/2023, 03/30/2022, 03/30/2022, Additional history exists Meningococcal B Vaccine Aged Out No l onger eligible based on patient's age to complete this topic Meningococcal Vaccine Aged Out No mindy alexei eligible based on patient's age to complete this topic RSV Immunizations Under 20 Months Aged Out No longer eligible based on patient's age to complete this topic Medical Devices Implanted Type Area Semiconductor Wafer Inspector Device Identifier Shelf Expiration Date Model / Serial / Lot Sternal Wires Implanted:Qty: 1 on 05/05/2018 by Tong Sloan MD at [facility] N/A: [employer] 02/12/2023 / / [id number] Description:WIRES X 6 Sternal Wires Implanted:Qty: 1 on 05/05/2018 by Tong Sloan MD at [facility] N/A: [employer] 01/12/2023 / / [id number] Description:WIRES X 1 Explanted Type Area Semiconductor Wafer Inspector Device Identifier Shelf Expiration Date Model / Serial / Lot Implantable Loop Recorder-2021 Implanted:Qty: 1 on 01/25/2022 by Mal Vega MD Explanted:Qty: 1 on 02/06/2024 by Mal Vega MD Implantable Loop Recorder Left: Chest Wall [employer] CARDIAC RHYTHM AND HEART FAILURE - DIV M [id number] / [id number] / Procedures Procedure Name Priority Date/Time Associated Diagnosis Comments LIPID PANEL Routine 02/06/2024 9:06 AM CDT Coronary artery disease involving resighini coronary artery of resighini heart without angina pectoris Cryptogenic stroke from Last 3 Months or Most Recently Relevant to Health Maintenance Results * (ABNORMAL) LIPID PANEL (02/06/2024 9:06 AM CDT) CHOLESTEROL 107 <200 MG/DL 02/06/2024 10:34 AM CDT [facility] TRIGLYCERIDES 80 <150 MG/DL 02/06/2024 10:34 AM CDT [facility] HDL 39(L) >40.0 MG/DL 02/06/2024 10:34 AM CDT [facility] LDL (CALCULATED) 52 <100 MG/DL 02/06/20 10:34 AM CDT [facility] NON HDL CHOLESTEROL 68 <130 MG/DL 02/05 10:34 AM CDT [facility] CHOL/HDL RATIO 2.7 0.0 - 4.5 02/06/2024 10:34 AM CDT [facility] VLDL CALCULATION 16 5 - 55 MG/DL 02/06/2024 10:34 AM CDT [facility] LIPID INTERPRETATION 02/06/2024 10:34 AM CDT [facility] Comment: [facility] CONCENSUS REPORT RECOMMENDATIONS: ADULT CHILD LOW RISK: CHOLESTEROL <200 <170 TRIGLYCERIDE <150 --- HDL >=60 --- LDL <100 <110 BORDERLINE: CHOLESTEROL 200-239 170-199 TRIGLYCERIDE 150-199 --- HDL 40-59 --- LDL 100-159 110-129 HIGH RISK: CHOLESTEROL >=240 >=200 TRIGLYCERIDE >=200 --- HDL <40 --- LDL >=160 >=130 02/06/2024 9:06 AM CDT Garrison Fowler MD LABORATORY Final Resul t [facility] [address] [place] [address], from Last 3 Months or Most Recently Relevant to Health Maintenance Insurance Advance Directives Documents on File Type Date Recorded Patient Plan Manager Expl anation Legal Documents 04/15/2021 COVID-19 CAR D * Full Code (Latest Code Status on File) Date Activated Date Inactivated Comments 05/10/2018 7:01 PM 05/16/2018 1:53 PM * Full Code Date Activated Date Inactivated Comments 05/02/2018 11:18 AM 05/10/2018 7:01 PM Care Teams Aircraft Avionics Technician Relationship Specialty Start Date End Date Curry Laguerre MD [address] [address] PCP - General FAMILY PRACTICE 04/15/21 Garrison Fowler MD [facility]. [address] [address] Hunter Knifer Up CARDIOVASCULAR DISEASE 05/14/17
--- OUTSIDE RECORDS SUMMARY | 2025-03-12 14:39 | XMS_ITS | Clinical Summary ---
Author Organization [facility] Address [address] [place] [address] Care Team Providers Care Program Manager Rn Name Role Phone Curry Laguerre MD Primary Care Provider Allergies No known active allergies Medications acetaminophen (TYLENOL) 500 mg tablet Take 1 tablet (500 mg total) by mouth 3 (three) times a day as needed 1 Active albuterol 2.5 mg /3 mL (0.083 %) nebulizer solution 8 Active albuterol HFA (PROVENTIL HFA,VENTOLIN HFA,PROAIR HFA) 90 mcg/actuation inhaler INL 1 TO 2 PFS PO Q 4 H PRF SOB 9 Active cetirizine (ZyrTEC) 10 mg tablet 1 Active metoprolol tartrate (LOPRESSOR) 25 mg immediate release tablet TAKE ONE (1) TABLET BY MOUTH TWICE DAILY 0 Active naproxen (NAPROSYN) 500 mg tablet Take 500 mg by mouth 2 (two) times a day as needed 9 Active nitroglycerin (NITROSTAT) 0.[address] 1 tablet (0.4 mg total) under the tongue every 5 (five) minutes as needed 1 Active sertraline (ZOLOFT) 100 mg tablet Take 2 tablets (200 mg total) by mouth daily 8 Active aspirin 81 mg enteric coated tablet Take 1 tablet (81 mg total) by mouth daily Active diabetic supplies, [employer]. ([employer] Remote Control) [facility] [place] 25 2022 Ac tive famotidine (PEPCID) 40 mg tablet Take 1 tablet (40 mg total) by mouth daily Active clopidogreL (PLAVIX) 75 mg tablet Take 1 tablet (75 mg total) by mouth daily Active ezetimibe (ZETIA) 10 mg tablet Take 1 tablet (10 mg total) by mouth daily Active calcium carbonate-vitamin D3 (Calcium 600 + D,3,) 1,500 mg (600 mg elemental)-200 unit capsuleIndication s:Age-related osteoporosis without current pathological fracture Take 600 mg by mouth 2 (two) times a day Take 1 tab by mouth once or twice daily 60 capsule 11 2 Active cholecalciferol (VITAMIN D-3) 2000 unit tablet Take 1 tablet (2,000 Units total) by mouth daily Active ClearLax 17 gram/dose powder USE DIRECTED BY OFFICE 3 Active atorvastatin (LIPITOR) 80 mg tablet Take 1 tablet (80 mg total) by mouth nightly at bedtime 2 Active omeprazole (PriLOSEC) 40 mg capsule Take by mouth 2 (two) times a day before breakfast and dinner 2 Active traZODone (DESYREL) 100 mg tablet 3 Active pregabalin (LYRICA) 150 mg capsuleIndication s:neuropathy Take 1 capsule (150 mg total) by mouth 2 (two) times a day 60 capsule 5 3 Active diazePAM (VALIUM) 2 mg tabletIndications :anxiety Take 1-2 tablets (2-4 mg total) by mouth once for 1 dose Take 1 tab 45 mins before MRI. May take 1 additional tab 5 mins before MRI PRN anxiety 2 tablet 3 Active diazePAM (VALIUM) 2 mg tabletIndications :anxiety Take 1-2 tablets (2-4 mg total) by mouth once for 1 dose Take 1 tab 45 mins before MRI. May take 1 additional tab 5 mins before MRI PRN anxiety 2 tablet 3 Active Active Problems Problem Noted Date Diagnosed Date Greater trochanteric bursitis of left hip 2020 Chronic bilateral low back pain 09/09/2021 Sacroiliitis 09/09/2021 Age-related osteoporosis wit hout current pathological fracture 02/18/2021 Surgical History Surgery Date Site/Laterality Comments HERNIA REPAIR HYSTERECTOMY 11/14/1999 - 11/13/2000 ANKLE ARTHROSCOPY W/ OPEN REPAIR Right Medical History Medical History Date Comments Fatigue Hypertension Heart attack (HCC) Heartburn SOB (shortness of breath) Arthritis Muscle pain Swollen joint Painful urination Weakness Kidney stones Chronic pain disorder Family History Medical History Relation Name Comments Cancer Father Rheum arthritis Sister Hip fracture Neg Hx Osteoporosis Neg Hx Scoliosis Neg Hx Relation Name Status Comments Father Sister Social History Tobacco Use Types Packs/Day Years Used Date Smoking Tobacco: Some Days Cigarettes Last attempted to quit: 04/15/2018 Vaping Smokeless Tobacco: Never Tobacco Cessation:Ready to Q uit: Not Asked; Counseling Given: Not Answered AUDIT-C Answer Date Recorded Q1: How often do you have a drink containing alcohol? Never 04/08/2023 Q2: How many drinks containi ng alcohol do you have on a typical day when you are drinking? Patient does not drink Q3: How often do you have si x or more drinks on one occasion? Never 04/08/2023 Comments No Sex and Gender Information Value Date Recorded Sex Assigned at Not on file Legal Sex Female 8:18 PM DATA OPERATIONS DIRECTOR Gender Identity Female 10/18/2021 9:56 AM DATA OPERATIONS DIRECTOR Sexual Orientation Straight 10/18/2021 9: 54 AM DATA OPERATIONS DIRECTOR Obstetrics History Last Filed Vital Signs Vital Sign Reading Time Taken Comments Blood Pressure 128/57 04/08/2023 1:22 PM CDT Pulse 80 04/08/2023 1:22 PM CDT Temperature 36.4 C (97.5 F) 04/08/2023 1:22 PM CDT Respiratory Rate 18 04/08/2023 1:22 PM CDT Oxygen Saturation 96% 04/08/2023 1:22 PM CDT Inhaled Oxygen Concentration - - Weight 80.7 kg (178 lb) 04/05/2023 10:24 AM CDT Height 160 cm (5' 3 ) 04/05/2023 10:24 AM CDT Body Mass Index 31.53 04/05/2023 10:24 AM CDT Plan of Treatment Health Maintenance Due Date Last Done Comments Breast Cancer Screening-Mammogram 1955 Colon Cancer Screening-Colonoscopy 1955 Depression Screening 1955 Fall Risk Assessment 1955 Hepatitis C Screening 1955 Hepatitis B Screening 1974 Zoster Vaccine (1 of 2) 2006 Well Visit 65+ 2021 Pneumococcal vaccine 65+ (3 of 3 - PCV20 or PCV21) 09/15/2023 09/15/2018, 11/17/2015 Influenza Vaccine (#1) 2024 , 08/13/2019, 07/18/2018, Additional history exists Osteoporosis Screening-Bone Density Scan 04/05/2025 04/05/2023, 03/30/2022, 02/18/2021 DTaP/Tdap/Td Vaccine (2 - Td or Tdap) 07/14/2027 07/14/2017 Goals Goal Patient Goal Type Associated Problems Recent Progress Patient-Stated? Author CCM Chronic Pain Care Plan Chronic Care Management Worsening( 1:24 PM CDT) Amberly Franklin RN Note: Problem: Chronic Pain Goals: 1. Minimize further functional decline 2. Maximize quality of life 3. Control pain Strategies: - Activity/exercise program recommendation - Conservative stepwise pain medicine strategy with multi-disciplinary approach - Recommend healthy lifestyle strategies and compensatory methods as needed Medical Devices Implanted Type Area Knife Finisher Device Identifier Shelf Expiration Date Model / Serial / Lot Linq Ii-01/25/2022 Implanted:2021 (Quantity not on file) Chest Medtronic [id number] / / Procedures Procedure Name Priority Date/Time Associated Diagnosis Comments DEXA TBS AXIAL SKELETON BONE DENSITY 1 OR MORE SITES Schedule Routine, Read Routine (OP Routine) 04/05/2023 10:32 AM CDT Age-related osteoporosis without current pathological fracture from Last 3 Months or Most Recently Relevant to Health Maintenance Results * Dexa TBS Axial Skeleton Bone Density 1 or more sites (04/05/2023 10:32 AM CDT) Anatomical Region Laterality Modality Wrist, Body N/A Radiographic Vannesa ging Narrative 04/06/2023 5:39 AM CDT Patient Name: Wendy Chin Date of : 1955 Date of scan: 04/05/2023 Bone mineral density was performed on a HoloShip[employer] Discovery Densitometer. Based on machine cross-calibration and precision studies the least significant changes of this densitometer is 0.024 g/cm2 at the spine, 0.020 g/cm2 at the total proximal femur, and 0.014g/cm2 at the forearm. HISTORY: This is a 67 y.o. postmenopausal female with a history of osteoporosis. She reports that she has been smoking cigarettes. She has never used smokeless tobacco. Currently on treatment with calcium, vitamin D, zoledronic acid (Reclast), and anticoagulants. INDICATIONS: Menopause status, treatment monitoring, and history of osteoporosis. FINDINGS: BONE MINERAL DENSITY OF THE LUMBAR SPINE Bone Mineral Density (BMD) of the lumbar spine was measured from L1-L4 and the average density was calculated to be 0.911 gm/cm2. This corresponds to a T-score (standard deviations from the mean of young adults) of -1.2. When compared to the previous study of 03/30/2022 there has been no significant changes in bone density. BONE MINERAL DENSITY OF THE PROXIMAL FEMUR Bone Mineral Density (BMD) of the left hip total was found to be 0.708 gm/cm2. This corresponds to a T-score standard deviations from the mean of young adults of -1.9. Femoral neck is 0.555 gm/cm2 with a T-score (standard deviations from the mean of young adults) of -2.7. When compared to the previous study of 03/30/2022 there has been no significant changes in bone density. SUMMARY: Bone mineral density shows evidence of osteoporosis and marked increase risk of fracture. There has been no significant changes in bone density since previous measurement. The lumbar spine Trabecular Bone Score is 1.147 which suggests degraded bone microarchitecture compared to the general population. Final decisions regarding diagnostic or therapeutic recommendations should include BMD, TBS, additional clinical risk factors as well the clinical context of the patient. Please see attached TBS results for further details. ADDITIONAL COMMENTS: Postmenopausal Women and Men Over 50: Diagnostic criteria: Osteoporosis: BMD at or below -2.5 T-score; Osteopenia (low bone mass): BMD between -1.0 and -2.5 T-score. If the patient has a history of a fragility fracture, a fracture that occurred with trauma equivalent to a fall from a standing position or less, then the diagnosis is osteoporosis regardless of bone density. The history and data sections of the bone mineral density scan were prepared by Estee Ying) DAVIDE who is accredited by the International Society of Clinical Densitometry. The overall patient assessment and scan interpretation were performed by Starr Draper M.D. who is certified by the International Society of Clinical Densitometry. [id number] Starr Draper MD IMG DXA PROCEDURES Final Resu lt from Last 3 Months or Most Recently Relevant to Health Maintenance Insurance [facility] Care Teams Program Manager Rn Relationship Specialty Start Date End Date Curry Laguerre MD [id number] [id number] PCP - General 02/19/21
--- OUTSIDE RECORDS SUMMARY | 2025-03-12 14:39 | XMS_ITS | Continuity of Care Document ---
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 Name Role Phone Erasto Martines MD Unavailable Unavailable Allergies, Adverse Reactions, Alerts Substance Reaction Status Criticality No Known Allergies Active No Inform ation Medications Medication Instructions Dosage Effective Dates (start - stop) Status Comments Norvasc 5 mg tablet take 1 tablet by oral route every day 5 MG - Active Vistaril 50 mg capsule take 1 capsule by oral route every bedtime 50 MG - Active Mirapex 1 mg tablet take 1 tablet by oral route every bedtime 1 MG - Active Xanax 1 mg tablet take 1 tablet (1MG) by oral route every 4 - 6 hours as needed 1 MG - Active avoid driving or operate machines Gowrie 5 mg-325 mg tablet take 1 tablet by oral route 3 times every day as needed for pain 1 tablet - Active PRN for pain, avoid driving or operate machines Ventolin HFA 90 mcg/actuation aerosol inhaler inhale 2 puff by inhalation route every 4 - 6 hours as needed - Active losartan 100 mg-hydrochlorothi azide 25 mg tablet take 1 tablet by oral route every day 1.00 tablet - Active Zoloft 100 mg tablet take 1 tablet (100MG) by oral route every day 100 MG - Active Symbicort 160 mcg-4.5 mcg/actuation HFA Aerosol Inhaler inhale 2 puff by inhalation route 2 times every day in the morning and evening 2.00 puff - Active Lipitor 40 mg tablet take 1 tablet (40MG) by oral route every day 40 MG - Active Zantac 300 mg tablet take 1 tablet (300MG) by oral route every day at bedtime - Active Vitamin D2 50,000 unit capsule take 1 capsule ([id number]) by oral route every week - Active Procedures Procedure Date OFFICE/OUTPATIENT VISIT, EST OFFICE/OUTPATIENT VISIT, EST OFFICE/OUTPATIENT VISIT, EST OFFICE/OUTPATIENT VISIT, EST PREV VISIT, EST, AGE 40-64 OFFICE/OUTPATIENT VISIT, EST OFFICE/OUTPATIENT VISIT, EST OFFICE/OUTPATIENT VISIT, EST OFFICE/OUTPATIENT VISIT, EST OFFICE/OUTPATIENT VISIT, EST OFFICE/OUTPATIENT VISIT, EST OFFICE/OUTPATIENT VISIT, EST OFFICE/OUTPATIENT VISIT, EST OFFICE/OUTPATIENT VISIT, EST OFFICE/OUTPATIENT VISIT, EST OFFICE/OUTPATIENT VISIT, EST OFFICE/OUTPATIENT VISIT, EST OFFICE/OUTPATIENT VISIT, EST PREV VISIT, EST, AGE 40-64 OFFICE/OUTPATIENT VISIT, EST OFFICE/OUTPATIENT VISIT, EST OFFICE/OUTPATIENT VISIT, EST OFFICE/OUTPATIENT VISIT, EST OFFICE/OUTPATIENT VISIT, EST OFFICE/OUTPATIENT VISIT, EST OFFICE/OUTPATIENT VISIT, EST OFFICE/OUTPATIENT VISIT, EST OFFICE/OUTPATIENT VISIT, EST OFFICE/OUTPATIENT VISIT, EST OFFICE/OUTPATIENT VISIT, EST OFFICE/OUTPATIENT VISIT, EST PREV VISIT, EST, AGE 40-64 OFFICE/OUTPATIENT VISIT, EST OFFICE/OUTPATIENT VISIT, EST OFFICE/OUTPATIENT VISIT, EST OFFICE/OUTPATIENT VISIT, EST OFFICE/OUTPATIENT VISIT, EST OFFICE/OUTPATIENT VISIT, EST Advance Directives Directive Yes / No Effective Date File Name No Information Encounters Encounter Description Practice Location Reason(s) For Visit Diagnoses Date Provider Providers Copied on Encounter [facility], [address], [place], [place], [address], [place] tel:[phone] [facility] Medicine No Information Conrad Maurer. [address], [place], [place], [address] , [place]. tel:[phone] Referring Provider: Erasto Martines [address], [place], [place], [address]. tel:[phone] [facility], [address], [place], [place], [address], [place] tel:[phone] [facility] No Information Conrad Maurer. [address], [place], [place], [address] , [place]. tel:[phone] Referring Provider: Ray Leblanc [address], [place], [place], [address]. tel:[phone] OFFICE/OUTPA TIENT VISIT, [facility], [address], [place], [place], [address], [place] tel:[phone] [facility] HTN (chief complaint) restless leg1 (chief complaint) COPD1 (chief complaint) insomnia1 (chief complaint) back pain1 (chief complaint) Essential (primary) hypertensionRestles s legs syndromeGeneralized anxiety disorderOther insomnia 5 Conrad Maurer. [address], [place], [place], [address] , [place]. tel:[phone] Referring Provider: Ray Leblanc [address], [place], [place], [address]. tel:[phone] OFFICE/OUTPA TIENT VISIT, [facility], [address], [place], [place], [address], [place] tel:[phone] [facility] insomnia (chief complaint) back pain (chief complaint) anxiety (chief complaint) COPD (chief complaint) Dietary surveillance and counselingRestless legs syndrome (RLS)Generalized anxiety disorderChronic airway obstruction, not elsewhere classifiedInsomnia 5 Conrad Maurer. [address], [place], [place], [address] , [place]. tel:[phone] Referring Provider: Ray Leblanc [address], [place], [place], [address]. tel:[phone] OFFICE/OUTPA TIENT VISIT, EST [facility], [address], [place], [place], [address], [place] tel:[phone] [facility] back pain (chief complaint) anxiety (chief complaint) HTN (chief complaint) GERD (chief complaint) Dietary surveillance and counselingUnspecifi ed essential hypertensionLumbago Esophageal refluxGeneralized anxiety disorder 5 Conrad Maurer. [address], [place], [place], [address] , [place]. tel:[phone] Referring Provider: Ray Leblanc [address], [place], [place], [address]. tel:[phone] OFFICE/OUTPA TIENT VISIT, EST [facility], [address], [place], [place], [address], [place] [phone] [facility] COPD (chief complaint) back pain (chief complaint) anxiety (chief complaint) HLP (chief complaint) LumbagoOther and unspecified hyperlipidemiaGener alized anxiety disorder 5 Conrad Cortes [address], [place], [place], [address] , [place]. [phone] Referring Provider: Ray Leblanc [address], [place], [place], [address]. tel:[phone] PREV VISIT, EST, AGE 40-64 [facility], [address], [place], [place], [address], [place] tel:[phone] [facility] Physical (chief complaint) Dietary surveillance and counselingRoutine medical examCOPDCOPD 5 Conrad Cortes [address], [place], [place], [address] , [place]. tel:[phone] Referring Provider: Ray Leblanc [address], [place], [place], [address]. tel:[phone] OFFICE/OUTPA TIENT VISIT, [facility], [address], [place], [place], [address], [place] tel:[phone] [facility] back pain (chief complaint) anxiety (chief complaint) hernia (chief complaint) GERD (chief complaint) Generalized anxiety disorderEsophageal refluxHerniaLumbago 5 Conrad Cortes [address], [place], [place], [address] , [place]. tel:[phone] Referring Provider: Ray Leblanc [address], [place], [place], [address]. tel:[phone] OFFICE/OUTPA TIENT VISIT, [facility], [address], [place], [place], [address], [place] tel:[phone] [facility] abdominal bloating (chief complaint) GERD (chief complaint) anxiety (chief complaint) back pain (chief complaint) restless leg (chief complaint) Dietary surveillance and counselingAbdominal PainGERDRESTLESS LEGS SYNDROMELumbago Feb-3 5 Conrad Cortes [address], [place], [address] , [place]. [phone] Referring Provider: Ray Leblanc [address], [place], [place], [address]. tel:[phone] OFFICE/OUTPA TIENT VISIT, [facility], [address], [place], [place], [address], [place] tel:[phone] [facility] GERD (chief complaint) back pain (chief complaint) anxiety (chief complaint) HLP (chief complaint) GERDLumbagoGenerali zed anxiety disorderOther and unspecified hyperlipidemia Feb-0 5 Conrad Cortes [address], [place], [place], [address] , [place]. tel:[phone] Referring Provider: Ray Leblanc [address], [place], [place], [address]. tel:[phone] OFFICE/OUTPA TIENT VISIT, [facility], [address], [place], [place], [address], [place] tel:[phone] [facility] back pain (chief complaint) anxiety (chief complaint) COPD (chief complaint) GERD (chief complaint) Dietary surveillance and counselingGERDLumba goCOPDPersonal history of noncompliance with medical treatment, presenting hazards to health 5 Conrad Maurer. [address], [place], [address] , [place]. [phone] Referring Provider: Ray Leblanc [address], [place], [place], [address]. tel:[phone] OFFICE/OUTPA TIENT VISIT, [facility], [address], [place], [place], [address], [place] tel:[phone] [facility] back pain (chief complaint) anxiety (chief complaint) HTN (chief complaint) LumbagoHypertension , UnspecifiedGenerali zed anxiety disorderRESTLESS LEGS SYNDROME 5 Conrad Maurer. [address], [place], [place], [address] , [place]. [phone] Referring Provider: Erasto Martines [address], [place], [place], [address]. tel:[phone] OFFICE/OUTPA TIENT VISIT, [facility], [address], [place], [place], [address], [place] tel:[phone] [facility] back pain (chief complaint) anxiety (chief complaint) bruising (chief complaint) Dietary surveillance and counselingLumbagoGe neralized anxiety disorderSpontaneous ecchymoses 5 Conrad Maurer. [address], [place], [place], [address] , [place]. tel:[phone] Referring Provider: Erasto Martines, [address], [place], [place], [address]. tel:[phone] OFFICE/OUTPA TIENT VISIT, [facility], [address], [place], [place], [address], [place] tel:[phone] [facility] COPD (chief complaint) back pain (chief complaint) anxiety (chief complaint) HLP (chief complaint) Dietary surveillance and counselingCOPDOther and unspecified hyperlipidemiaGener alized anxiety disorder 4 Conrad Maurer. [address], [place], [place], [address] , [place]. [phone] Referring Provider: Ray Leblanc [address], [place], [place], [address]. tel:[phone] OFFICE/OUTPA TIENT VISIT, [facility], [address], [place], [place], [address], [place] tel:[phone] [facility] anxiety (chief complaint) back pain (chief complaint) GERD (chief complaint) restless leg (chief complaint) RESTLESS LEGS SYNDROMEGeneralized anxiety disorderLumbagoGERD 4 Conrad Maurer. [address], [place], [address] , [place]. tel:[phone] Referring Provider: Ray Leblanc [address], [place], [place], [address]. tel:[phone] OFFICE/OUTPA TIENT VISIT, [facility], [address], [place], [place], [address], [place] tel:[phone] [facility] HTN (chief complaint) anxiety (chief complaint) GERD (chief complaint) back pain (chief complaint) Generalized anxiety disorderHypertensio n, UnspecifiedGERDLumb ago 4 Conrad Maurer. [address], [place], [place], [address] , [place]. tel:[phone] Referring Provider: Erasto Martines, [address], [place], [place], [address]. tel:[phone] OFFICE/OUTPA TIENT VISIT, [facility], [address], [place], [address], [place] tel:[phone] [facility] Anxiety (chief complaint) GERD (chief complaint) HTN (chief complaint) HLP (chief complaint) Dietary surveillance and counselingOther and unspecified hyperlipidemiaHyper tension, UnspecifiedGenerali zed anxiety disorderGERD 4 Conrad Maurer. [address], [place], [place], [address] , [place]. [phone] Referring Provider: Ray Leblanc [address], [place], [place], [address]. tel:[phone] OFFICE/OUTPA TIENT VISIT, [facility], [address], [place], [place], [address], [place] tel:[phone] [facility] GERD (chief complaint) anxiety (chief complaint) restless leg (chief complaint) RESTLESS LEGS SYNDROMEGERDGeneral ized anxiety disorder 4 Conrad Maurer. [address], [place], [place], [address] , [place]. [phone] Referring Provider: Ray Leblanc [address], [place], [place], [address]. tel:[phone] OFFICE/OUTPA TIENT VISIT, [facility], [address], [place], [place], [address], [place] tel:[phone] [facility] anxiety (chief complaint) GERD (chief complaint) restless leg (chief complaint) RESTLESS LEGS SYNDROMEGeneralized anxiety disorderGERD 4 Conrad Maurer. [address], [place], [place], [address] , [place]. [phone] Referring Provider: Ray Leblanc [address], [place], [place], [address]. tel:[phone] OFFICE/OUTPA TIENT VISIT, EST [facility], [address], [place], [place], [address], [place] tel:[phone] [facility] Anxiety (chief complaint) HLP (chief complaint) HTN (chief complaint) Vitamin D (chief complaint) Other and unspecified hyperlipidemiaHyper tension, UnspecifiedUnspecif ied vitamin d deficiencyGeneraliz ed anxiety disorder 4 Conrad Maurer. [address], [place], [place], [address] , [place]. tel:[phone] Referring Provider: Ray Leblanc [address], [place], [place], [address]. tel:[phone] PREV VISIT, EST, AGE 40-64 [facility], [address], [place], [place], [address], [place] tel:[phone] [facility] PHysical (chief complaint) Dietary surveillance and counselingRoutine Medical ExamRoutine Medical Exam 4 Conrad Maurer. [address], [place], [place], [address] , [place]. tel:[phone] Referring Provider: Ray Leblanc [address], [place], [place], [address]. tel:[phone] OFFICE/OUTPA TIENT VISIT, EST [facility], [address], [place], [place], [address], [place] tel:[phone] [facility] anxiety (chief complaint) GERD (chief complaint) COPD (chief complaint) back pain (chief complaint) Dietary surveillance and counselingGeneraliz ed anxiety disorderCOPDGERDLum bago 4 Conrad Maurer. [address], [place], [place], [address] , [place]. tel:[phone] Referring Provider: Ray Leblanc [address], [place], [place], [address]. tel:[phone] OFFICE/OUTPA TIENT VISIT, EST [facility], [address], [place], [place], [address], [place] tel:[phone] [facility] anxiety (chief complaint) HTN (chief complaint) HLP (chief complaint) restless leg (chief complaint) GERD (chief complaint) Dietary surveillance and counselingRESTLESS LEGS SYNDROMEGeneralized anxiety disorderOther and unspecified hyperlipidemiaHyper tension, Unspecified 0 4 Conrad Maurer. [address], [place], [place], [address] , [place]. tel:[phone] Referring Provider: Ray Leblanc [address], [place], [place], [address]. tel:[phone] OFFICE/OUTPA TIENT VISIT, [facility], [address], [place], [place], [address], [place] tel:[phone] [facility] anxiety (chief complaint) leg pain (chief complaint) restless leg (chief complaint) Dietary surveillance and counselingRESTLESS LEGS SYNDROMEGeneralized anxiety disorderPain in joint involving lower leg 4 Conrad Maurer. [address], [place], [place], [address] , [place]. tel:[phone] Referring Provider: Ray Leblanc [address], [place], [place], [address]. tel:[phone] OFFICE/OUTPA TIENT VISIT, [facility], [address], [place], [place], [address], [place] tel:[phone] [facility] anxiety (chief complaint) HTN (chief complaint) restless leg (chief complaint) Generalized anxiety disorderHypertensio n, UnspecifiedRESTLESS LEGS SYNDROME Fe0 4 Conrad Maurer. [address], [place], [place], [address] , [place]. tel:[phone] Referring Provider: Ray Leblanc [address], [place], [place], [address]. tel:[phone] OFFICE/OUTPA TIENT VISIT, [facility], [address], [place], [place], [address], [place] tel:[phone] [facility] anxiety (chief complaint) rest less leg (chief complaint) COPD (chief complaint) GERD (chief complaint) Dietary surveillance and counselingCOPDGERDG eneralized anxiety disorderOther and unspecified hyperlipidemia 4 Conrad Cortes [address], [place], [address] , [place]. [phone] Referring Provider: Ray Leblanc [address], [place], [place], [address]. tel:[phone] OFFICE/OUTPA TIENT VISIT, [facility], [address], [place], [place], [address], [place] [phone] [facility] anxiety (chief complaint) GERD (chief complaint) Dietary surveillance and counselingGeneraliz ed anxiety disorderHypertensio n, UnspecifiedGERD 3 Conrad Cortes [address], [place], [place], [address] , [place]. [phone] Referring Provider: Ray Leblanc [address], [place], [place], [address]. tel:[phone] OFFICE/OUTPA TIENT VISIT, [facility], [address], [place], [place], [address], [place] tel:[phone] [facility] GERD (chief complaint) anxiety (chief complaint) Dietary surveillance and counselingGERDGener alized anxiety disorder 3 Conrad Cortes [address], [place], [place], [address] , [place]. [phone] Referring Provider: Ray Leblanc [address], [place], [place], [address]. tel:[phone] OFFICE/OUTPA TIENT VISIT, [facility], [address], [place], [place], [address], [place] tel:[phone] [facility] anxiety (chief complaint) knee pain (chief complaint) HLP (chief complaint) GERD (chief complaint) Dietary surveillance and counselingOther and unspecified hyperlipidemiaHyper tension, UnspecifiedGenerali zed anxiety disorder 3 Conrad Cortes [address], [place], [place], [address] , [place]. tel:[phone] Referring Provider: Ray Leblanc [address], [place], [place], [address]. tel:[phone] OFFICE/OUTPA TIENT VISIT, [facility], [address], [place], [place], [address], [place] tel:[phone] [facility] anxiety (chief complaint) knee pain (chief complaint) Dietary surveillance and counselingPain in joint involving lower legGeneralized anxiety disorderHypertensio n, Unspecified 3 Conrad Maurer. [address], [place], [place], [address] , [place]. tel:[phone] Referring Provider: Ray Leblanc [address], [place], [place], [address]. tel:[phone] OFFICE/OUTPA TIENT VISIT, [facility], [address], [place], [place], [address], [place] tel:[phone] [facility] anxiety (chief complaint) HLP (chief complaint) HTN (chief complaint) Dietary surveillance and counselingGeneraliz ed anxiety disorderOther and unspecified hyperlipidemiaHyper tension, Unspecified 3 Conrad Maurer. [address], [place], [place], [address] , [place]. tel:[phone] Referring Provider: Ray Leblanc [address], [place], [place], [address]. tel:[phone] OFFICE/OUTPA TIENT VISIT, [facility], [address], [place], [place], [address], [place] tel:[phone] [facility] anxiety (chief complaint) HTN (chief complaint) COPD (chief complaint) Dietary surveillance and counselingCOPDGener alized anxiety disorderOther and unspecified hyperlipidemia 3 Conrad Maurer. [address], [place], [place], [address] , [place]. tel:[phone] Referring Provider: Erasto Martines, [address], [place], [place], [address]. tel:[phone] OFFICE/OUTPA TIENT VISIT, [facility], [address], [place], [place], [address], [place] tel:[phone] [facility] anxiety (chief complaint) arthritis (chief complaint) Dietary surveillance and counselingGeneraliz ed anxiety disorderAllergic arthritis involving hand 3 Conrad Maurer. [address], [place], [place], [address] , [place]. tel:[phone] Referring Provider: Erasto Martines, [address], [place], [place], [address]. tel:[phone] PREV VISIT, EST, AGE 40-64 [facility], [address], [place], [address], [place] tel:[phone] [facility] Physical (chief complaint) Dietary surveillance and counselingRoutine Medical ExamRoutine Medical Exam 3 Conrad Maurer. [address], [place], [place], [address] , [place]. tel:[phone] Referring Provider: [address] [place], [place], [address]. tel:[phone] OFFICE/OUTPA TIENT VISIT, [facility], [address], [place], [place], [address], [place] tel:[phone] [facility] HTN (chief complaint) HLP (chief complaint) anxiety (chief complaint) hand pain (chief complaint) Dietary surveillance and counselingHypertens ion, UnspecifiedOther and unspecified hyperlipidemiaGener alized anxiety disorder 3 Conrad Maurer. [address], [place], [place], [address] , [place]. tel:[phone] Referring Provider: Ray Leblanc [address], [place], [place], [address]. tel:[phone] OFFICE/OUTPA TIENT VISIT, [facility], [address], [place], [place], [address], [place] tel:[phone] [facility] HTN (chief complaint) HLP (chief complaint) rest less leg (chief complaint) Dietary surveillance and counselingHypertens ion, UnspecifiedOther and unspecified hyperlipidemiaGener alized anxiety disorder 3 Conrad Maurer. [address], [place], [place], [address] , [place]. tel:[phone] Referring Provider: Erasto Martines, [address], [place], [place], [address]. tel:[phone] OFFICE/OUTPA TIENT VISIT, [facility], [address], [place], [place], [address], [place] tel:[phone] [facility] HTN (chief complaint) Sick (chief complaint) anxiety (chief complaint) Dietary surveillance and counselingViral Infection, UnspecifiedGenerali zed anxiety disorderHypertensio n, Unspecified 3 Conrad Maurer. [address], [place], [place], [address] , [place]. tel:[phone] Referring Provider: Ray Leblanc [address], [place], [place], [address]. tel:[phone] OFFICE/OUTPA TIENT VISIT, [facility], [address], [place], [place], [address], [place] tel:[phone] [facility] HTN (chief complaint) HLP (chief complaint) anxiety (chief complaint) Dietary surveillance and counselingHypertens ion, UnspecifiedGenerali zed anxiety disorderOther and unspecified hyperlipidemia 3 Conrad Maurer. [address], [place], [place], [address] , [place]. tel:[phone] Referring Provider: Ray Leblanc [address], [place], [place], [address]. tel:[phone] OFFICE/OUTPA TIENT VISIT, [facility], [address], [place], [place], [address], [place] tel:[phone] [facility] anxiety (chief complaint) HLP (chief complaint) COPD (chief complaint) Dietary surveillance and counselingHypertens ion, UnspecifiedCOPDOthe r and unspecified hyperlipidemia 2 Conrad Maurer. [address], [address] , . tel:[phone] Referring Provider: Ray Lebl[address], [address]. tel:[phone] OFFICE/OUTPA TIENT VISIT, EST [facility], [address], [place], [place], [address], [place] [phone] [facility] anxiety (chief complaint) HLP (chief complaint) HTN (chief complaint) restless leg (chief complaint) Dietary surveillance and counselingOther and unspecified hyperlipidemiaGener alized anxiety disorderRESTLESS LEGS SYNDROME 2 Conrad Maurer. [address], [facility] [address] , [place]. [phone] Referring Provider: Erasto Martines [address] [facility], [address]. tel:[phone] Family History Family Member Type Diagnosis Age At Onset Father Problem (finding) Cancer, brain Brother Problem (finding) Bipolar Disorder Mother Problem (finding) COPD Payers Payer name Insurance type Covered democrat ID Authoriza tion(s) No Information Social History Type Description Quantity Date Captured Comments Sex Female Smoking Status No Information Chief Complaint And Reason For Visit No Information Plan Of Treatment Date Type Action Status Goal Td vaccine. Due on 15 due Goal Depression screening. Due on due Goal Influenza vaccine. Due on due Goal Colonoscopy. Due on 015 due Goal Tdap. Due on due Goal Sigmoidoscopy. Due on due Goal FOBT. Due on due Goal Pap/HPV testing. Due on due Goal FOBT. Due on due Goal Colonoscopy. Due on due Goal Tdap. Due on due Goal Influenza vaccine. Due on due Goal Sigmoidoscopy. Due on due Goal Pap/HPV testing. Due on due Goal Td vaccine. Due on 15 due Goal Depression screening. Due on due Goal Colonoscopy. Due on due Goal Pap/HPV testing. Due on due Goal Td vaccine. Due on 15 due Goal Tdap. Due on due Goal Influenza vaccine. Due on due Goal Depression screening. Due on due Goal Sigmoidoscopy. Due on due Goal FOBT. Due on due Goal Influenza vaccine. Due on due Goal Pap/HPV testing. Due on due Goal Td vaccine. Due on 15 due Goal Depression screening. Due on due Goal Colonoscopy. Due on due Goal Tdap. Due on due Goal Sigmoidoscopy. Due on due Goal FOBT. Due on due Goal Colonoscopy. Due on due Goal Pap/HPV testing. Due on due Goal FOBT. Due on due Goal Depression screening. Due on due Goal Influenza vaccine. Due on due Goal Tdap. Due on due Goal Td vaccine. Due on 15 due Goal Sigmoidoscopy. Due on due Goal Colonoscopy. Due on 015 due Goal Depression screening. Due on due Goal FOBT. Due on due Goal Influenza vaccine. Due on due Goal Pap/HPV testing. Due on due Goal Sigmoidoscopy. Due on due Goal Td vaccine. Due on 15 due Goal Tdap. Due on due Goal Colonoscopy. Due on 013 due Goal Mammogram. Due on 3 due Goal Tobacco cessation counseling completed Goal Tobacco cessation counseling completed Goal Tobacco cessation counseling completed Goal Tobacco cessation counseling completed Goal Tobacco cessation counseling completed Goal Tobacco cessation counseling completed Goal Tobacco cessation counseling completed Goal Tobacco cessation counseling completed Goal Tobacco cessation counseling completed Goal Tobacco cessation counseling completed Goal Tobacco cessation counseling completed Goal Tobacco cessation counseling completed Goal Tobacco cessation counseling completed Goal Tobacco cessation counseling completed Goal Tobacco cessation counseling completed Goal Tobacco cessation counseling completed Goal Tobacco cessation counseling completed Goal Tobacco cessation counseling completed Goal Tobacco cessation counseling completed Goal Tobacco cessation counseling completed Goal Tobacco cessation counseling completed Goal Tobacco cessation counseling completed Goal Tobacco cessation counseling completed Goal Tobacco cessation counseling completed Goal Tobacco cessation counseling completed Goal Tobacco cessation counseling completed Goal Tobacco cessation counseling completed Goal Tobacco cessation counseling completed Referral Ordered: Neurology (related to Restless legs syndrome) ordered Referral Ordered: Referrals: Neurology. Evaluate and treat ordered Referral Ordered: Neurosurgery (related to Lumbago) ordered Referral Ordered: Referrals: Neurosurgery. Evaluate and treat ordered Referral Ordered: Pulmonology (related to COPD) ordered Referral Ordered: Referrals: Pulmonology ordered Referral Ordered: CHEST X-RAY PA/LAT TWO-VIEWS ordered Referral Ordered: Surgery (related to Hernia) ordered Referral Ordered: Referrals: Surgery ordered Referral Ordered: CT ABDOMEN&PELVIS W/CONTRAST ordered Referral Ordered: Referral: Neurosurgery. ordered Referral Ordered: MRI LUMBAR SPINE W/O DYE ordered Referral Ordered: Physical Therapy (related to Lumbago) ordered Referral Ordered: LUMBAR XRAY AP AND LAT ONLY ordered Referral Referred To: Physical Therapy Ordered: Referral: Physical Therapy. ordered Referral Ordered: UPPER GI W/ KUB ordered Referral Ordered: KNEE XRAY TWO-VIEW ordered Referral Ordered: Referral: Pulmonary Diseases. Evaluate and treat. ordered Referral Ordered: MAMMOGRAM, SCREENING ordered History Of Present Illness Encounter Date Complaint History Of Prese nt Illness back pain1 Pt has chronic l ow back pain. Pt has 7/10 pain constantly. Pt is not surgical candiate. Pt c.o left sciatica. Pt failed PT insomnia1 Pt has insomnia. Vistaril is helping her at night COPD1 Pt feels SOB> Pt still smoking. Pt feels SOB frequently. PFT benign. Pt is using symbicort and albuterol. Pt uses albuterol multiple times per day still restless leg1 Pt has chronic n umbness and tingling and involuntary leg movement, worse at night. Pt has been taking mireapex but has not helped so much HTN Pt takes losarta n/HCTZ for HTN. Her BP is high. Pt denies any chset pain or headache insomnia The patient pres ents for insomnia. Relevant history: a BMI of 29.76. The patient is experiencing depression. The patient denies heartburn, weight gain or wheezing. Additional information: Pt has insomnia for several weeks. Pt has difficulty falling asleep at night. Pt also states that her restless leg is getting worse at night. Pt has leg numbness and urge to move them at night. anxiety The patient pres ents with anxious/fearful thoughts but denies fatigue. The patient denies any nausea, vomiting and weight gain. Additional information: Pt has chornic anxiety and depression. Pt takes zoloft and xanax. Pt denies any suicidasl thought. COPD Pt takes symbico rt and venotlin about BID. Pt has not done PFT yet back pain Additional infor mation: Pt has chronic LBP Pt denies any loss of bowel or bladder control. Pt is not surgical candidate from neurosurgery. Pt had PT already. GERD Associated sympt oms include back pain and heartburn. Pertinent negatives include constipation, diarrhea, dyspnea, fever, hematuria, nausea, rash, vaginal discharge, vomiting, weight gain and weight loss.Additional information:Pt is on zantac only. No omperozle per pt. Pt denies any GERd or abd pain. HTN BP slightly high with losartan/HCTZ. P tdenies any hedache or chest pain anxiety The patient pres ents with anxious/fearful thoughts but denies fatigue. The patient denies any nausea, vomiting and weight gain. Additional information: Pt has chronic anxiety and depression. Pt takes zoloft and xanax and doing ok. Pt denies any suicidasl thought. back pain Additional infor mation: Pt has chronic LBP. Pt denies any loss of bowel or bladder control. Pt c/o left sciatica. Pt c/o left leg numbness. Pt has 6/10 pain frequently. HLP Pt has HLP. Pt t akes lipitor. Pt takes TG. Pt denies any myalgia anxiety The patient pres ents with anxious/fearful thoughts but denies fatigue. The patient denies any vomiting. Additional information: Pt has chornic anxiety and dperession. Pt takes zoloft and xanax. Pt denies any suicidal thought. back pain Additional infor mation: Pt has chornic LBP. Pt denies any loss of bowel or bladder control. COPD P thas not done PFT yet. Pt is doing ok with symbicort and venotlin. No acute SOB Physical Pt needs annual physical. Pt has chronic LBP Pt denies any loss of bowel or bladder control. Pt has chornic GERD and she takes omeprazole and zantac for GERD. Pt doing ok. Pt is seeing Dr Lowery for hernia. Pt has appointment for follow up soon. Pt denies any new complaints GERD Associated sympt oms include back pain. Pertinent negatives include constipation, diarrhea, dyspnea, fever, heartburn, hematuria, nausea, rash, vaginal discharge, vomiting, weight gain and weight loss.Additional information:Pt has GERD and bloating. Pt still not taking both omeprazole and zantac. Pt is nonocompliant. hernia Additional infor mation: Pt notices some umblical bulge sometimes with pain. Pt has small hernia on CT scan. anxiety Additional infor mation: Pt has chronic aniety and depression Pt denies any suicidal thought. Pt takes zoloft and xanax. back pain Additional infor mation: Pt has chornic LBP. Pt denies any loss of bowel or bladder control. Pt has appointment with pain managment soon. Pt wants more hydrocodone for pain Pt has 7/10 pain daily. Instructions Date Instruction Additional Infor mation Prescribed Diet Educ ation/Lifestyle Education Regarding Diet Related to Dietary Surveillance and Counseling Prescribed Activity and Exercise Education Related to Dietary Surveillance and Counseling Prescribed Activity and Exercise Education Related to Dietary Surveillance and Counseling Prescribed Diet Educ ation/Lifestyle Education Regarding Diet Related to Dietary Surveillance and Counseling Prescribed Activity and Exercise Education Related to Dietary Surveillance and Counseling Prescribed Diet Educ ation/Lifestyle Education Regarding Diet Related to Dietary Surveillance and Counseling Physical activity counseling Rel ated to Dietary surveillance counseling Decrease caloric intake Related to Dietary surveillance counseling Physical activity counseling Rel ated to Dietary surveillance counseling Decrease caloric intake Related to Dietary surveillance counseling Physical activity counseling Rel ated to Dietary surveillance counseling Decrease caloric intake Related to Dietary surveillance counseling Decrease caloric intake Related to Dietary surveillance counseling Dietary counseling Related to Di etary surveillance counseling Dietary counseling Related to Di etary surveillance counseling Decrease caloric intake Related to Dietary surveillance counseling Dietary counseling Related to Di etary surveillance counseling Decrease caloric intake Related to Dietary surveillance counseling Dietary counseling Related to Di etary surveillance counseling Decrease caloric intake Related to Dietary surveillance counseling Dietary counseling Related to Di etary surveillance counseling Decrease caloric intake Related to Dietary surveillance counseling Decrease caloric intake Related to Dietary surveillance counseling Dietary counseling Related to Di etary surveillance counseling Dietary counseling Related to Di etary surveillance counseling Decrease caloric intake Related to Dietary surveillance counseling Decrease caloric intake Related to Dietary surveillance counseling Dietary counseling Related to Di etary surveillance counseling Dietary counseling Related to Di etary surveillance counseling Decrease caloric intake Related to Dietary surveillance counseling Dietary counseling Related to Di etary surveillance counseling Decrease caloric intake Related to Dietary surveillance counseling Decrease caloric intake Related to Dietary surveillance counseling Dietary counseling Related to Di etary surveillance counseling Dietary counseling Related to Di etary surveillance counseling Decrease caloric intake Related to Dietary surveillance counseling Dietary counseling Related to Di etary surveillance counseling Decrease caloric intake Related to Dietary surveillance counseling Dietary counseling Related to Di etary surveillance counseling Decrease caloric intake Related to Dietary surveillance counseling Dietary counseling Related to Di etary surveillance counseling Decrease caloric intake Related to Dietary surveillance counseling Dietary counseling Related to Di etary surveillance counseling Decrease caloric intake Related to Dietary surveillance counseling Dietary counseling Related to Di etary surveillance counseling Decrease caloric intake Related to Dietary surveillance counseling Dietary counseling Related to Di etary surveillance counseling Decrease caloric intake Related to Dietary surveillance counseling Dietary counseling Related to Di etary surveillance counseling Decrease caloric intake Related to Dietary surveillance counseling Decrease caloric intake Related to Dietary surveillance counseling Dietary counseling Related to Di etary surveillance counseling Dietary counseling Related to Di etary surveillance counseling Decrease caloric intake Related to Dietary surveillance counseling Assessments Type Assessment Date No Information
--- OUTSIDE RECORDS SUMMARY | 2025-03-12 14:39 | XMS_ITS | Encounter Summary ---
Author Organization [facility] Address [address] [place] [address] Care Team Providers Care Balance Clerk Name Role Phone Janet Little MD Primary Care Provider [phone] Garrison Fowler MD Unavailable [phone] Jean Pickett MD Primary Care Provider Unavail Bela Hernandez MD Primary Care Provider [phone] Curry Laguerre MD Primary Care Provider [phone] Encounter Details Date Type Department Care Team (Late st Contact Info) Description 05/23/2017 Abstract [facility] AT [address] [address] Angelica Leach MA Social History Tobacco Use Types Packs/Day Years Used Date Smoking Tobacco: Every Day Cigarettes Smokeless Tobacco: Never Alcohol Use Standard Drinks/Week Comments Yes 0 (1 standard drink = 0.6 oz pur e alcohol) beer occasional Comments Unknown Sex and Gender Information Value Date Recorded Sex Assigned at Female 12/05/2024 10:58 AM LAYER OUT Legal Sex Female 2:19 PM CDT Gender Identity Female 01/04/2022 9:30 AM LAYER OUT Sexual Orientation Straight 01/04/2022 9: 30 AM LAYER OUT documented as of this encounter Plan of Treatment Upcoming Encounters Date Type Department Care Team (Late st Contact Info) Description 06/05/2025 11:45 AM CDT Office Visit [facility] [address] [address] Garrison Fowler MD Three [facility]. [address] [place] [address] documented as of this encounter Procedures Procedure Name Priority Date/Time Associated Diagnosis Comments CBC (OUTSIDE LAB) Routine 05/18/2017 BASIC METABOLIC PANEL Routine 05/18/2017 FERRITIN Routine 05/18/2017 documented in this encounter Results * FERRITIN (05/18/2017) FERRITIN 193 05/18/2017 us Doc [facility] Abstract LABORATORY Final Result * BASIC METABOLIC PANEL (05/18/2017) SODIUM S/P/B 141 POTASSIUM S/P/B 4.0 CO2 23 CHLORIDE S/P/B 103 GLUCOSE 96 CALCIUM S/P/B 9.3 BUN 14 CREATININE S/P/B 0.60 0.5 - 1.0 EGFR AFR. AMER. >60 <=90 EGFR NON-AFR. AMER. >60 <=90 05/18/2017 us Doc [facility] Abstract LABORATORY Final Result * CBC (OUTSIDE LAB) (05/18/2017) WBC 6.5 HGB 12.3 HCT 36.5 PLT 178 05/18/2017 us Doc [facility] Abstract LAB-OUTSIDE/ABSTRACTED Final Result documented in this encounter Visit Diagnoses Not on filedocumented in this encounter Care Teams Balance Clerk Relationship Specialty Start Date End Date Janet Little MD [address] [facility] [address] [place] [address] PCP - General FAMILY PRACTICE 06/07/17 11/20/18 Jean Pickett MD [address] [facility] [address] [place] [address] PCP - General 05/18/17 06/06/17 Bela Voss MD [address] [facility] [address] [place] [address] PCP - General FAMILY PRACTICE 11/21/18 04/14/21 Curry Laguerre MD [address] [address] PCP - General FAMILY PRACTICE 04/15/21 Garrison Fowler MD [address] [place] [address] [place] [facility] [employer] CARDIOVASCULAR DISEASE 05/14/17 documented as of this encounter
--- OUTSIDE RECORDS SUMMARY | 2025-03-12 14:39 | XMS_ITS | Encounter Summary ---
Author Organization [facility] Address [address] [place] [address] Care Team Providers Care Welder Assistant Name Role Phone Garrison Fowler MD Unavailable [phone] Curry Laguerre MD Primary Care Provider [phone] Encounter Details Date Type Department Care Team (Late st Contact Info) Description 01/30/2024 Abstract [facility] [address] [address] Angelica Leach MA Social History Tobacco Use [...] Sex Assigned at Female 12/05/2024 10:58 AM [employer] Legal Sex Female 2:19 PM CDT Gender Identity Female 01/04/2022 9:30 AM [employer] Sexual Orientation Straight 01/04/2022 9: 30 AM [employer] Occupation Industry Job Start Date Job End Date Not on file Not on file Not on file Not on file documented as of this encounter Plan of Treatment Upcoming Encounters Date Type Department Care Team (Late st Contact Info) Description 06/05/2025 11:45 AM CDT Office Visit [facility] THREE [facility], [address] [place] [address] Garrison Fowler MD Three [facility]. [facility] [address] [place] [address] documented as of this encounter Procedures Procedure Name Priority Date/Time Associated Diagnosis Comments CBC, MANUAL DIFF Routine 05/14/2024 COMPREHENSIVE METABOLIC PANEL Routine 05/13/2024 COMPREHENSIVE METABOLIC PANEL Routine 04/29/2023 LIPID PANEL Routine 04/29/2023 documented in this encounter Results * CBC, MANUAL DIFF (05/14/2024) WBC 9.6 HGB 10.4 HCT 32.1 PLT 133 us Default History Genericprovider LABORATORY Final Result * COMPREHENSIVE METABOLIC PANEL (05/13/2024) SODIUM S/P/B 137 GLUCOSE 162 mg/dL BUN 14 CREATININE S/P/B 0.551 0.5 - 1.0 CALCIUM S/P/B 8.6 POTASSIUM S/P/B 4.1 CHLORIDE S/P/B 106 GFR ESTIMATE >60 us Default History Genericprovider LABORATORY Final Result * COMPREHENSIVE METABOLIC PANEL (04/29/2023) SODIUM S/P/B 143 GLUCOSE 102 mg/dL AST 18 BUN 18 CREATININE S/P/B 0.68 0.5 - 1.0 CALCIUM S/P/B 9.0 POTASSIUM S/P/B 4.6 CHLORIDE S/P/B 109 ALT 15.1 GFR ESTIMATE 95 us Default History Genericprovider LABORATORY Final Result * LIPID PANEL (04/29/2023) CHOLESTEROL 84.5 TRIGLYCERIDES 73 HDL 27.9 LDL (CALCULATED) 40.8 us Default History Genericprovider LABORATORY Final Result documented in this encounter Visit Diagnoses Not on filedocumented in this encounter Care Teams Welder Assistant Relationship Specialty Start Date End Date Curry Laguerre MD [address] [facility] [address] [place] [address] PCP - General FAMILY PRACTICE 04/15/21 Garrison Fowler MD [facility]. [facility] [address] [place] [address] [place] [employer] CARDIOVASCULAR DISEASE 05/14/17 documented as of this encounter
--- OUTSIDE RECORDS SUMMARY | 2025-03-12 14:39 | XMS_ITS | CONTINUITY OF CARE DOCUMENT ---
Author Name latisha good Address Unknown Organization [facility] Address [address] [facility] [address] [place] [address] Phone [phone] Care Team Providers Care Laboratory Director Name Role Phone Bernardo Gomez MD Unavailable [phone] ZAKIYA ALEXANDRE MD Unavailable [phone] ZAKIYA ALEXANDRE MD Unavailable [phone] INSURANCE PROVIDERS Payer name Policy type / Coverage type [place] red libertarian [place] [employer] Medicaid [id number] HEALTHCARE AND FAMILY SERVICES Medicaid 1 [id number]
--- OUTSIDE RECORDS SUMMARY | 2025-03-12 14:39 | XMS_ITS | Referral Summary ---
Author Organization [facility] Address [address] [place] [address] Care Team Providers Care Thermospray Operator Name Role Phone Curry Laguerre MD Primary Care Provider [phone] Allergies No known active allergies Medications acetaminophen [...] Active diabetic supplies, miscellan. (Medtronic Remote Control) [facility] [place] [place] January 25 2022 Ac tive famotidine (PEPCID) [...] osteoporosis wit hout current pathological fracture 02/18/2021 Social History Tobacco Use Types Packs/Day Years [...] on file Legal Sex Female 8:18 PM LOG COOKER Gender Identity Female 10/18/2021 9:56 AM LOG COOKER Sexual Orientation Straight 10/18/2021 9: 54 AM LOG COOKER Last Filed Vital Signs Vital Sign Reading [...] 04/05/2023 10:24 AM CDT Plan of Treatment Not on file Goals Goal Patient Goal Type Associated Problems [...] as needed Medical Devices Implanted Type Area Cleaner Laboratory Equipment Device Identifier Shelf Expiration Date Model / Serial / Lot Linq Ii-01/25/2022 Implanted:2021 (Quantity not on file) Chest Medtronic [id number] / / Procedures Procedure Name Priority Date/Time [...] Bone mineral density was performed on a HoloS[employer] Eagle Discovery Densitometer. Based on machine cross-calibration and [...] by the International Society of Clinical Densitometry. [id number] Starr Draper MD [facility] [place] DXA PROCEDURES Final Resu lt from Last 3 Months or Most Recently Relevant to Health Maintenance Insurance [facility] Care Teams Thermospray Operator Relationship Specialty Start Date End Date Curry Laguerre MD [address] [address] PCP - General 02/19/21
--- OUTSIDE RECORDS SUMMARY | 2025-03-12 14:39 | XMS_ITS | Patient Health Record ---
Author Organization [facility] Address [address] [place] [address] Care Team Providers Care Passenger Solicitor Name Role Phone Girish Martina Primary Care Provider [phone] Allergies No Known Allergies Reason For Referral No Information Medications Medication SIG (Take, Route, Frequency, Duration) Notes Start Date End Date Status Montelukast Sodium 10 MG Oral for 90 Days Active Lisinopril 10 MG Oral for 90 Days Active Famotidine 40 MG Oral for 30 Days Active Calcium 600 MG 2 tablet with meals Orally Once a day Active Ergocalciferol 1.25 MG (11784 UT) 1 capsule Orally Once a week Active Ergocalciferol 50 MCG (2000 UT) 1 capsule Orally Once a day Active Omeprazole 40 MG 1 capsule 30 minutes before morning meal Orally Once a day Active traZODone HCl 100 MG 2 tablet at bedtime Orally Once a day for 30 days [address] [place] [address] Active Sertraline HCl 100 MG 2 tablet Orally Once a day for 30 days [address] [place] [id number] Active Atorvastatin Calcium 80 MG TAKE 1 TABLET BY MOUTH ONCE DAILY AT BEDTIME Oral for 90 Days Active Ibsrela 50 MG Oral for 30 Days Active Social History Tobacco Use: Social History Observation Description Date Details (start date - stop date) Current some da y smoker NA - NA Sex Assigned At : Social History Observation Description Sex Assigned At Female Tobacco Control (Standard) Question Answer Notes Tobacco use: Current some day smoker Problems Problem Type SNOMED Code ICD Code Onset Dates Problem Status W/U Status Risk Notes Problem [id number] DELFINA (generalized anxiety disorder) (F41.1) Active confirmed Problem [id number] Moderate episode of recurrent major depressive disorder (F33.1) Active confirmed Encounters Encounter Location Date Provider Diagnosis [facility] [place] [address] [place] [address] 03/16/2024 Kenisha Martin DELFINA (generalized anxiety disorder) F41.1 and Moderate episode of recurrent major depressive disorder F33.1 [facility] [address] [place] [address] 07/11/2024 Kenisha Martin DELFINA (generalized anxiety disorder) F41.1 and Moderate episode of recurrent major depressive disorder F33.[address] [facility] [place] [address] 10/05/2024 Kenisha Martin DELFINA (generalized anxiety disorder) F41.1 and Moderate episode of recurrent major depressive disorder F33.[address] [address] 02/22/2025 Kenisha Martin DELFINA (generalized anxiety disorder) F41.1 and Moderate episode of recurrent major depressive disorder F33.1 Assessments Encounter Date Diagnosis (ICD Code) Assessment Notes Treatment Notes Treatment Clinical Notes Section Notes 03/16/2024 DELFINA (generalized anxiety disorder) (ICD-10 - F41.1) Continue current medications. Continue services as scheduled. Labs completed recently. May self-administer medications or be administered own oral medications per 5app protocols. Provided informed consent with understanding of side effects, adverse effects, risks and benefits as well as alternative treatments as previously discussed and with the above recommended medications & other aspects of the treatment program. Agrees to return sooner if symptoms worsen or suicidal or homicidal ideations occur. 07/11/2024 DELFINA (generalized anxiety disorder) (ICD-10 - F41.1) Continue current medications. Continue services as scheduled. Labs completed recently. May self-administer medications or be administered own oral medications per [employer]app protocols. Provided informed consent with understanding of side effects, adverse effects, risks and benefits as well as alternative treatments as previously discussed and with the above recommended medications & other aspects of the treatment program. Agrees to return sooner if symptoms worsen or suicidal or homicidal ideations occur. 10/05/2024 DELFINA (generalized anxiety disorder) (ICD-10 - F41.1) Continue current medications. Continue services as scheduled. Labs completed recently. May self-administer medications or be administered own oral medications per [place] protocols. Provided informed consent with understanding of side effects, adverse effects, risks and benefits as well as alternative treatments as previously discussed and with the above recommended medications & other aspects of the treatment program. Agrees to return sooner if symptoms worsen or suicidal or homicidal ideations occur. 02/22/2025 DELFINA (generalized anxiety disorder) (ICD-10 - F41.1) Continue current medications. Continue services as scheduled. Labs completed recently. May self-administer medications or be administered own oral medications per [place] protocols. Provided informed consent with understanding of side effects, adverse effects, risks and benefits as well as alternative treatments as previously discussed and with the above recommended medications & other aspects of the treatment program. Agrees to return sooner if symptoms worsen or suicidal or homicidal ideations occur. 02/22/2025 Moderate episode of recurrent major depressive disorder (ICD-10 - F33.1) 10/05/2024 Moderate episode of recurrent major depressive disorder (ICD-10 - F33.1) 07/11/2024 Moderate episode of recurrent major depressive disorder (ICD-10 - F33.1) 03/16/2024 Moderate episode of recurrent major depressive disorder (ICD-10 - F33.1) Plan Of Treatment No Information Insurance Providers Payer Name Payer Address Payer Phone Subscriber Number Group Number Insured Name Patient Relationship to Insured Coverage Start Date Coverage End Date [facility] Att Claims Department [address] [place] [address] [id number] Wendy Chin Self - patient is the insured 0 0 [employer] [address] [place] [address] [id number] Chin Wendy Self - patient is the insured 1 [employer] [address] [place] [address] [id number] Lenora Chincy Self - patient is the insured 1 Medical (General) History Medical History History ICD Code Vitamin D deficiency GERD Surgical History Surgery Date(Month/Year) Cataract surgery 05/2023
--- OUTSIDE RECORDS SUMMARY | 2025-03-12 14:39 | XMS_ITS | Encounter Summary ---
Author Organization [facility] Address [facility]ly [facility] [place] [address] Care Team Providers Care Service Center Representative Name Role Phone Garrison Fowler MD Unavailable [phone] Bela Voss MD Primary Care Provider [phone] Curry Laguerre MD Primary Care Provider [phone] Encounter Details Date Type Department Care Team (Late st Contact Info) Description 11/20/2020 [facility] [address] Angelica Leach MA Social History Tobacco Use [...] Sex Assigned at Female 12/05/2024 10:58 AM PRODUCT ARCHITECT Legal Sex Female 2:19 PM CDT Gender Identity Female 01/04/2022 9:30 AM PRODUCT ARCHITECT Sexual Orientation Straight 01/04/2022 9: 30 AM PRODUCT ARCHITECT Occupation Industry Job Start Date Job End Date Not on file Not on file Not on file Not on file documented as of this encounter Plan of Treatment Upcoming Encounters Date Type Department Care Team (Late st Contact Info) Description 06/05/2025 11:45 AM CDT Office Visit [facility], [address] [place] [address] Garrison Fowler MD [facility]. [address] [place] [address] documented as of this encounter Procedures Procedure Name Priority Date/Time Associated Diagnosis Comments CBC (OUTSIDE LAB) Routine 04/25/2020 BASIC METABOLIC PANEL Routine 02/26/2020 documented in this encounter Results * CBC (OUTSIDE LAB) (04/25/2020) WBC 7.3 HGB 12.8 HCT 39 PLT 201 04/25/2020 [facility] Abstract LAB-OUTSIDE/ABSTRACTED Final Result * BASIC METABOLIC PANEL (02/26/2020) SODIUM S/P/B 140 POTASSIUM S/P/B 5.1 CO2 25 CHLORIDE S/P/B 101 GLUCOSE 107 mg/dL CALCIUM S/P/B 9.8 BUN 14 CREATININE S/P/B 0.82 0.5 - 1.0 EGFR AFR. AMER. 88 <=90 EGFR NON-AFR. AMER. 76 <=90 02/26/2020 us Doc [facility] Abstract LABORATORY Final Result documented in this encounter Visit Diagnoses Not on filedocumented in this encounter Care Teams Service Center Representative Relationship Specialty Start Date End Date Bela Voss MD [address] [facility] [address] [place] [address] PCP - General FAMILY PRACTICE 11/21/18 04/14/21 Curry Laguerre MD [address] [facility] [address] [place] [address] PCP - General FAMILY PRACTICE 04/15/21 Garrison Fowler MD [facility]. [facility] [address] [place] [address] [employer] Consumer Loan Officer CARDIOVASCULAR DISEASE 05/14/17 documented as of this encounter
== END 2025-03-12 13:24 | disposition home or self-care (01) ==
PROVIDERS: PCP Family Medicine; Visit Provider Family Medicine
DX: Z12.31 Encounter for screening mammogram for malignant neoplasm of breast (principal)
CPT/HCPCS: 77063; 77067